=== PATIENT | female | born 1970 | race Caucasian/White ===

== ENCOUNTER 2024-01-20 12:23 | Emergency (ER) | payer SELFPAY ==
[2024-01-20 12:25] VITALS: BP 179/112
--- NOTE | 2024-01-20 13:15 | ED.GENMED ---
History of Present Illness
General
Chief Complaint: Flank Pain
Source: patient
Exam Limitations: none
Time Seen by Provider: 01/20/24 12:59
Nursing documentation reviewed up to this point in time: agreed with
History of Present Illness
History of Present Illness:
53-year-old female with past medical history as documented notable for recurrent kidney stones presents to the emergency department for evaluation of flank pain. Patient reports onset of symptoms about 10 days ago and they have been waxing and
waning in intensity since then. She reports pain is identical to prior kidney stones, was trying to pass it at home says that pain is not going away and she thinks it could be stuck. She reports some hematuria but denies dysuria. She has been
drinking a lot of water and so she has been going more frequently but denies any fevers or chills. She has had some nausea no vomiting. No change in bowels. She denies any other complaints. Last kidney stone she says was about 2 months ago and
she was able to pass it on her own.
Past History
Past History
ED Past Medical History: Other (Kidney stones, medullary sponge kidney, ddd, UTI); Negative Asthma, HTN, Hypercholesterolemia or NIDDM
ED Past Surgical History: Urological
Social History
Tobacco: Non-smoker
Alcohol: None
Drug: None
Personal:
Living: with family
Family History
Family History: Other (Father had kidney stones ); Negative Diabetes, Hypertension, Early CAD, Asthma or Cancer
Review of Systems
Review of Systems
All Other Systems: ROS reviewed and negative except as documented in HPI and ROS
Constitutional: Denies fever or chills
Respiratory: Denies trouble breathing
Cardiac: Denies chest pain
ABD/GI: Reports nausea; Denies abdominal pain, vomiting or diarrhea
: Reports frequency, flank pain and bleeding; Denies dysuria
Musculoskeletal: Denies neck pain or back pain
Neurological: Denies headache
Phy Exam
Physical Exam
Physical Exam:
General: Awake, alert, oriented x3; appears mildly uncomfortable
Head: Normocephalic, atraumatic
Eyes: Conjunctiva normal, sclera anicteric
Throat: Airway intact, handling secretions
Neck: Trachea midline, supple without meningismus
Lungs: Breathing comfortably with no distress, no evidence of accessory muscle use, no cyanosis, normal respiratory rate, normal pulse ox
Heart: Tachycardia with regular rhythm
Abd: Soft, non distended, nontender
Back: No CVA tenderness
Neuro: No gross deficits
Extremities: No edema in extremities, warm well-perfused
Scores
Heart Failure Risk
Heart Failure Risk Score: Not Applicable
Heart Score for Chest Pain Patients
STEMI patient?: Not applicable
Withdrawal Assessment of Alcohol
Withdrawal Assessment Completed?: Not applicable
Course
Orders/Labs/Results
Orders:
Orders
01/20/24 13:02
CT Abd/pel Without Iv Or Oral Urgent
Comment:
Reason For Exam: L flank pain
0.9% Sodium Chloride 1000 ml [Nss] 1,000 ml IV BOLUS
Ketorolac [Toradol] 15 mg IV NOW STA
01/20/24 13:14
Ondansetron Injectable [Zofran] 4 mg IV NOW STA
01/20/24 13:28
Complete Blood Count/With Diff Urgent
Comprehensive Metabolic Panel Urgent
Lipase Urgent
01/20/24 16:41
Urinalysis Reflex To Culture Urgent
Date Specimen was Collected: 01/20/24
Time Specimen was Collected: 16:27
Urine Microscopic Reflex Cult Urgent
Urine Culture Urgent
PATI Source: U
Specimen Description:
Date Specimen was Collected: 01/20/24
Time Specimen was Collected: 16:27
Abnormal Lab Results
01/20/24 01/20/24
13:28 16:41
Lymphocytes % 20.0 L %
(20.5-51.1)
Urine Ketones Trace A
(Negative)
Ur Occult Blood Reflex 3+ A
(Negative)
Leukocyte Esterase Rfl 1+ A
(Negative)
01/20/24 13:28
01/20/24 13:28
Vital Signs
Initial and Last Documented VS:
Initial Vital Signs
Temp Pulse Resp BP Pulse Ox
36.7 C 102 20 179/112 95
01/20/24 12:25 01/20/24 12:25 01/20/24 12:25 01/20/24 12:25 01/20/24 12:25
Last Documented Vital Signs
Temp Pulse Resp BP Pulse Ox
36.7 C 95 20 154/89 99
01/20/24 12:25 01/20/24 15:26 01/20/24 15:26 01/20/24 15:26 01/20/24 15:26
MDM/Problems Addressed
Differential Diagnosis Includes:
Nephrolithiasis, UTI/pyelonephritis, peptic ulcer, pancreatitis, musculoskeletal pain
MDM/Problems Addressed:
53-year-old female presents for evaluation of left flank pain ongoing x 10 days identical to prior kidney stones. Hypertensive and tachycardic likely pain related. Rest of vitals normal. Physical exam as above. Plan to check labs including a CBC
and a CMP, lipase. Check urinalysis. Sent for CT abdomen pelvis. Will provide fluids, pain control, antiemetic. Reassess after the above.
Labs reviewed: CBC and CMP unremarkable. Lipase normal. CT of the abdomen pelvis shows multiple intrarenal calculi but no hydronephrosis, no ureteral calculi or bladder calculus. No other acute pathology in the abdomen pelvis. Awaiting
urinalysis.
Urinalysis positive for blood. Symptoms could be from a recently passed stone given positive blood on UA versus UTI, somewhat lower suspicion that this is musculoskeletal. She could be having symptoms of intermittent obstruction from intrarenal
stones as well. Will plan to cover with antibiotics. No clear indication of the hospital chan at this point, vitals have been stable she is not septic even if this is a UTI. She is tolerating p.o. Will prescribe pain control and Zofran. Patient
to follow-up with urology as an outpatient. She feels very comfortable with this plan. All questions answered.
Chronic conditions affecting care:
Recurrent kidney stone
Acute Exacerbation and/or Progression of Chronic Illness:
Acutely hypertensive likely pain related�no signs or symptoms of hypertensive emergency, will treat pain but no emergent antihypertensives indicated at present
Acute Exacerbation and/or Progression of Chronic Illness: HTN
*Radiology
Radiology exam reviewed: preliminary read by ED provider and radiology read reviewed
*Pulse Oximetry
Patient hypoxic: no
*Critical Care Note
Total Time (30-74mins, 75-104mins- exclusive of procedures): Not Applicable
Data Reviewed
Review of Other/Old Records Reveals: Labs and Records
Source: patient and records
ED Attending Note
-
Portions of this chart may have been created with voice recognition software.� Occasional wrong word or��sound alike� substitutions may have occurred due to the inherent limitations of voice recognition software.
Discharge Plan
Departure
Patient Disposition: Home (Routine Discharge)
Date of Disposition: 01/20/24
Time of Disposition: 17:00
Patient with high blood pressure during this ER visit?: Yes
Discharge Problem:
Left flank pain, Hypertension
Instructions: Flank Pain (DC), BLOOD PRESSURE
Prescriptions:
New
hydromorphone 2 mg tablet
2 mg PO Q6H PRN (Reason: Pain) Qty: 10 0RF
ondansetron 4 mg tablet,disintegrating
4 mg PO TIDPRN PRN (Reason: nausea/vomiting) Qty: 10 0RF
cefdinir 300 mg capsule
300 mg PO BID 7 Days Qty: 14 0RF
No Action
hydromorphone 2 MG tablet
2 mg PO Q4HPRN PRN (Reason: pain) Qty: 15 0RF
ondansetron 4 MG tablet,disintegrating
4 mg PO TIDPRN PRN (Reason: nausea) Qty: 12 0RF
cholecalciferol (vitamin D3) [D3 DOTS] 50 MCG tablet
2,000 unit PO DAILY
mecobalamin (vitamin B12) [B12 Active] 1,000 MCG tablet,chewable
1,000 mcg PO DAILY
tamsulosin 0.4 MG capsule
0.4 mg PO DAILY PRN (Reason: kidney stone)
ondansetron 4 mg Tablet,Disintegrating
4 mg PO TIDPRN PRN (Reason: nausea/vomiting) Qty: 8 0RF
Referrals:
Jason Braxton MD [Active] - Call in 1-3 days for appt
Yahaira Gordon DO [Family Provider] -
Activity Restrictions/Additional Instructions:
Thank you for visiting the Emergency Department at [facility].
1. Please schedule a follow up appointment as directed. Call first thing tomorrow morning to make an appointment.
2. If indicated, please take your medications as instructed and indicated on discharge paperwork.
3. If any of your symptoms do not improve, or persist, or become more severe within 6-12 hours, please return to the emergency department for further care.
4. Please return to the emergency department if you develop a headache, neck pain/stiffness, fever greater than 100.4F, chest pain, shortness of breath, persistent nausea, vomiting, slurred speech, difficulty walking, numbness/tingling, weakness,
signs of infection or any other symptoms that are worrisome to you.
Please call [phone] if you have any questions.
Interventions
Interventions:
*Risk Screen - Suicide Last Done: 01/20/24 12:24
*General Assessment Last Done: 01/20/24 12:25
WZ-[id number]-[id number] Assessment Last Done: 01/20/24 15:26
ED-Female Genitourinary Assessment Last Done: 01/20/24 15:26
Discharge Date and Time
Print Language: LIBERIAN
[2024-01-20 13:20] VITALS: BMI 36.3
[2024-01-20] MEDS: ZOFRAN 4 MG IV (13:31)
[2024-01-20] MEDS: TORADOL 15 MG IV (13:31)
[2024-01-20] MEDS: NSS 1000 IV (13:32)
[2024-01-20 13:36] VITALS: BP 138/84
[2024-01-20 13:56] LABS: % Basophils 0.3 % (0-2); % Eosinophils 0.8 % (0-6); % Immature Granulocytes 0.3 % (0-0.5); % Monocytes 5.3 % (1.7-9.3); % Neutrophils 73.3 % (42.2-75.2); Absolute Eosinophils 0.1 10^3/uL (0-0.7); Absolute Lymphocytes 1.5 10^3/uL (1.2-3.4); Absolute Monocytes 0.4 10^3/uL (0.1-0.6); Absolute Neutrophils 5.3 10^3/uL (1.4-6.5); Hemoglobin 12.7 g/dL (12.0-16.0); Mean Corp Hgb Conc. 34.3 g/dL (33.0-37.0); Mean Corpuscular Hgb 30.1 pg (27.0-31.0); Mean Corpuscular Volume 87.7 fL (81.0-99.0); Mean Platelet Volume 9.7 fL (7.4-10.4); Nucleated Red Blood Cells % 0 %; Platelet Count 266 10^3/uL (130-400); Red Blood Cell Count 4.22 10^6/uL (4.20-5.40); Red Cell Dist. Width 12.4 % (11.5-14.5); White Blood Cell Count 7.3 10^3/uL (4.8-10.8)
[2024-01-20 14:20] LABS: ALT (SGPT) 12 U/L (0-35); AST (SGOT) 16 U/L (14-36); Albumin 4.3 g/dl (3.5-5.0); Alkaline Phosphatase 91 U/L (38-126); Blood Urea Nitrogen 13 mg/dl (7-17); Calcium 9.3 mg/dl (8.4-10.2); Carbon Dioxide 27 mmol/L (22-30); Chloride 101 mmol/L (98-107); Estimated Creatinine Clearance 74 ml/min; Glucose 94 mg/dl (70-99); Lipase 68 U/L (23-300); Potassium 4.2 mmol/L (3.5-5.1); Sodium 138 mmol/L (135-145); Total Bilirubin 0.8 mg/dl (0.2-1.3); Total Protein 6.8 g/dl (6.3-8.2); eGFR > 60.00
[2024-01-20 15:26] VITALS: BP 154/89
[2024-01-20 16:53] LABS: Urine Albumin Negative (Neg - Trace); Urine Bilirubin Negative (Negative); Urine Character Clear (Clear); Urine Color Yellow; Urine Glucose Negative (Negative); Urine Ketone Trace (Negative); Urine Leukocyte 1+ (Negative); Urine Nitrite Negative (Negative); Urine Occult Blood 3+ (Negative); Urine Urobilinogen Negative (Neg - 1+)
[2024-01-20 17:09] LABS: Urine Urothelial Cell 0-2 /LPF (FEW)
[2024-01-20 17:10] LABS: Urine Bacteria Moderate (Negative)
[2024-01-20 17:11] VITALS: BP 172/91
== END 2024-01-20 17:12 | disposition home or self-care (01) ==
LOC: EMR 12:23
PROVIDERS: EMERGENCY PHYSICIAN Emergency Medicine; FAMILY PHYSICIAN Family Medicine
DX: R10.9 Unspecified abdominal pain (principal); I10 Essential (primary) hypertension; Z82.49 Family history of ischemic heart disease and other diseases of the circulatory system; Z87.440 Personal history of urinary (tract) infections; Z87.442 Personal history of urinary calculi
CPT/HCPCS: 99284; 96374; 96375; 96361; 74176; 80053; 81003; 81015; 83690; 85025; 87086

== ENCOUNTER 2024-02-12 00:56 | Emergency (ER) | payer BC, SELFPAY ==
[2024-02-12 00:58] VITALS: BP 173/99
[2024-02-12 01:55] LABS: % Basophils 0.2 % (0-2); % Immature Granulocytes 0.3 % (0-0.5); % Lymphocytes 12.9 % (20.5-51.1); % Monocytes 4.5 % (1.7-9.3); % Neutrophils 82.1 % (42.2-75.2); Absolute Lymphocytes 1.2 10^3/uL (1.2-3.4); Absolute Monocytes 0.4 10^3/uL (0.1-0.6); Absolute Neutrophils 7.4 10^3/uL (1.4-6.5); Hematocrit 39.9 % (37.0-47.0); Hemoglobin 13.8 g/dL (12.0-16.0); Mean Corp Hgb Conc. 34.6 g/dL (33.0-37.0); Mean Corpuscular Hgb 31.3 pg (27.0-31.0); Mean Corpuscular Volume 90.5 fL (81.0-99.0); Mean Platelet Volume 9.8 fL (7.4-10.4); Nucleated Red Blood Cells % 0 %; Platelet Count 270 10^3/uL (130-400); Red Blood Cell Count 4.41 10^6/uL (4.20-5.40); Red Cell Dist. Width 12.3 % (11.5-14.5); White Blood Cell Count 9.1 10^3/uL (4.8-10.8)
[2024-02-12 01:56] LABS: Urine Albumin Negative (Neg - Trace); Urine Bilirubin Negative (Negative); Urine Character Clear (Clear); Urine Color Straw; Urine Glucose Negative (Negative); Urine Ketone Negative (Negative); Urine Leukocyte 2+ (Negative); Urine Nitrite Negative (Negative); Urine Occult Blood Trace (Negative); Urine Urobilinogen Negative (Neg - 1+)
[2024-02-12 02:02] VITALS: BP 152/93; BMI 35.2
[2024-02-12 02:16] LABS: Urine Bacteria Few (Negative); Urine Red Blood Cell 0-2 /HPF (0-2); Urine White Cell 60-70 /HPF (0-5); Urine Yeast Few (Negative)
[2024-02-12 02:19] LABS: Troponin I < 0.012 ng/ml
[2024-02-12 02:21] LABS: ALT (SGPT) 15 U/L (0-35); AST (SGOT) 15 U/L (14-36); Albumin 4.3 g/dl (3.5-5.0); Alkaline Phosphatase 76 U/L (38-126); Blood Urea Nitrogen 15 mg/dl (7-17); Calcium 9.2 mg/dl (8.4-10.2); Carbon Dioxide 28 mmol/L (22-30); Chloride 100 mmol/L (98-107); Estimated Creatinine Clearance 81 ml/min; Glucose 119 mg/dl (70-99); Potassium 4.3 mmol/L (3.5-5.1); Sodium 141 mmol/L (135-145); Total Bilirubin 0.4 mg/dl (0.2-1.3); eGFR > 60.00
--- NOTE | 2024-02-12 02:37 | ED.GENMED ---
History of Present Illness
General
Chief Complaint: Numbness
Source: patient
Exam Limitations: none
Time Seen by Provider: 02/12/24 02:21
Nursing documentation reviewed up to this point in time: agreed with
History of Present Illness
History of Present Illness:
This is a 53-year-old woman who has history of kidney stones who complains of several week history of generalized numbness as well as generalized aches, arthralgias primarily lower back, bilateral arms and mildly to the bilateral legs. She denies
chest pain or shortness of breath but feels some discomfort when she attempts to take a deep breath noting lower chest, upper abdominal tightness when she attempts to take a deep breath.
Evaluated by her PCP last week and initial thought was for musculoskeletal lower back pain and she was placed on a Medrol Dosepak for which she has 2 days left. Thus far no improvement and with no improvement with Medrol was prescribed a muscle
relaxer 2 days ago which she admits makes her tired but has not improved her symptoms. Along with prednisone she has been taking NSAIDs intermittently for her discomfort.
She denies headache or neck pain, no fever no chills, no rash, no swelling. No nausea or vomiting, no diarrhea or constipation. No change in weight.
She has had intermittent left flank pain with prior history of kidney stones, similar left flank pain noted during ED visit January 19. CT showed intrarenal stones but no evidence of ureteric stone nor hydronephrosis. Urinalysis concerning for
possible UTI and she was placed on an antibiotic during that ED visit, urine culture returned negative/no growth.
Currently denies flank pain. She has had no UTI symptoms, no dysuria, no urgency, no hematuria.
Prior records reveal similar complaints of generalized numbness 2021 for which she was evaluated by neurology and underwent unremarkable EMG/nerve conduction study. Unremarkable MRIs/MRAs of the brain. She states that episode of numbness was
different than current symptoms.
She has had no falls, no difficulty with ambulation.
She takes no medicines on a daily basis but has been taking a fair amount of NSAIDs over the past several weeks due to low back pain. Prescribed Dilaudid tablets during ED visit January 19, according to PDMP, this was filled February 06.
Past History
Past History
ED Past Medical History: Other (Kidney stones, medullary sponge kidney, ddd, UTI); Negative Asthma, HTN, Hypercholesterolemia or NIDDM
ED Past Surgical History: Urological
Social History
Tobacco: Non-smoker
Alcohol: None
Drug: None
Personal:
Living: with family
Family History
Family History: Other (Father had kidney stones ); Negative Diabetes, Hypertension, Early CAD, Asthma or Cancer
Phy Exam
Physical Exam
Physical Exam:
GENERAL: 53-year-old woman appears somewhat older than stated age, awake and alert, appears in no acute distress, easily communicative.
EYE: anicteric
NECK: Supple, nontender, no meningismus, no significant adenopathy.
ENT: oral mucosa is moist. No rhinorrhea.
CARDIAC: Regular rate and rhythm. no murmur.
LUNGS: Clear breath sounds bilaterally, no acute respiratory distress, no wheezes/rales/rhonchi
ABDOMEN: Rotund, soft, nondistended, without focal tenderness, no r/g, no cvat. normoactive BS.
NEUROLOGICAL: Alert and oriented x3, no focal neuro deficits. Gait is steady.
SKIN: Warm and dry, normal color, skin intact. No rash.
MUSCULOSKELETAL: No C/C/E. peripheral pulses are full and equal b/l. No palpable tenderness.
PSYCH: Normal and appropriate interaction.
Course
Orders/Labs/Results
Orders:
Orders
02/12/24 01:27
Electrocardiogram (*1) Urgent
Reason for Study: Other
Other Reason for Exam: Possible Stroke
EKG- Treatment ONCE
02/12/24 01:37
C-Reactive Protein Urgent
Comment: ADD ON
Complete Blood Count/With Diff Urgent
Comprehensive Metabolic Panel Urgent
Erythrocyte Sed Rate Urgent
Comment: ADD ON
Lipase Urgent
Comment: ADD ON
Lyme Progressive Urgent
Date Specimen was Collected: 02/12/24
Time Specimen was Collected: :27
Comment: ADD ON
TSH Reflex To Free T4 Urgent
Comment: ADD ON
Troponin I Urgent
Urinalysis Reflex To Culture Urgent
Date Specimen was Collected: 02/12/24
Time Specimen was Collected: :27
Urine Microscopic Reflex Cult Urgent
Urine Culture Urgent
PATI Source: U
Specimen Description:
Date Specimen was Collected: 02/12/24
Time Specimen was Collected: :
02/12/24 02:36
Add On- LAB Urgent
Tests Added?: sed rate, CRP, lyme progressive, TSH w reflex free T-4
02/12/24 04:08
Mag Hydrox/Al Hydrox/Simeth [Maalox] 30 ml Phenobarb/Hyoscy/Atropine/Scop [] 10 ml Viscous Lidocaine 2% [Xylocaine Viscous Cup] 10 ml PO NOW
Pantoprazole [Protonix IV] 40 mg IV NOW STA
02/12/24 05:01
Mag Hydrox/Al Hydrox/Simeth [Maalox] 30 ml .ROUTE .STK-MED ONE
Phenobarb/Hyoscy/Atropine/Scop [] 10 ml .ROUTE .STK-MED ONE
Viscous Lidocaine 2% [Xylocaine Viscous Cup] 15 ml .ROUTE .STK-MED ONE
02/12/24 05:33
Sucralfate Suspension [Carafate Suspension] 1 gm PO NOW STA
CR Chest - 2 Views Urgent
Comment:
Reason For Exam: CP, epigastric fullness
02/12/24 06:27
Acetaminophen 1000MG/100Ml [Ofirmev] 1,000 mg in 100 ml IV ONCE
Acetaminophen IV Indication:: ED Narcotic Naive Pt-ONCE
02/12/24 06:28
Acetaminophen 1000MG/100Ml [Ofirmev] 1,000 mg in 100 ml .ROUTE .STK-MED
02/12/24 06:33
Add On- LAB Urgent
Tests Added?: lipase
Abnormal Lab Results
02/12/24
01:37
MCH 31.3 H pg
(27.0-31.0)
Absolute Neuts (auto) 7.4 H 10^3/uL
(1.4-6.5)
Neutrophils % 82.1 H %
(42.2-75.2)
Lymphocytes % 12.9 L %
(20.5-51.1)
Glucose 119 H mg/dl
(70-99)
Ur Occult Blood Reflex Trace A
(Negative)
Leukocyte Esterase Rfl 2+ A
(Negative)
Urine WBC (Reflex) 60-70 A /HPF
(0-5)
Urine Bacteria (Reflex) Few A
(Negative)
Urine Yeast Few A
(Negative)
02/12/24 01:37
02/12/24 01:37
Vital Signs
Initial and Last Documented VS:
Initial Vital Signs
Temp Pulse Resp BP Pulse Ox
98.4 F 86 18 173/99 99
02/12/24 00:58 02/12/24 00:58 02/12/24 00:58 02/12/24 00:58 02/12/24 00:58
Last Documented Vital Signs
Temp Pulse Resp BP Pulse Ox
97.9 F 90 16 133/96 100
02/12/24 07:15 02/12/24 07:15 02/12/24 07:15 02/12/24 07:15 02/12/24 07:15
MDM/Problems Addressed
Differential Diagnosis Includes:
Patient presents with several nonspecific complaints, generalized numbness, generalized myalgias, arthralgias without associated weakness, no headache, no fever.
Exam is overall unremarkable, no focal neurodeficits.
Concern for potential ACS but thus far EEG is unremarkable, within normal limits and troponin is negative. With ongoing symptoms over the past week or 2, ACS is unlikely.
Labs thus far unremarkable with normal CBC, unremarkable chemistries.
Will add inflammatory markers as well as TSH and Lyme titer.
Urinalysis shows 60-70 WBCs, few bacteria, few yeast, 0-2 RBCs. Considered for UTI however patient denies UTI symptoms and similar urinalysis results revealed contaminated/mixed veronique on urine cultures. Patient currently denies abdominal pain, no
flank pain. At this point no indication for imaging.
*Radiology
Radiology exam reviewed: preliminary read by ED provider (Chest x-ray is unremarkable. Clear lung ingram. Normal heart size.)
*Pulse Oximetry
Patient hypoxic: no
*EKG
Interpreted by ED Provider?: Yes
Interpretation: normal
Comparison EKG: no comparison EKG present
Rate: normal
Rhythm: sinus
[place]: normal axis
Interval: normal interval
QRS Pattern: normal QRS
Ischemia: no ischemia
*Production Expert Interpretation
Rate: normal
Interpretation: normal
Rhythm: sinus
*Critical Care Note
Total Time (30-74mins, 75-104mins- exclusive of procedures): Not Applicable
Update Note
Update Note:
02/12/2024 0409 AM
Inflammatory markers as well as TSH all within normal limits.
Patient continues with some primarily epigastric discomfort, fullness that is worse with deep breath and I suspect she may have an element of gastritis which may be aggravated by current course of prednisone. Will trial a GI cocktail and Protonix.
At this point unclear as to cause for numbness/paresthesias of extremities and as above she reported similar generalized paresthesias in 2021 with unremarkable neurologic evaluation.
02/12/2024 0628 AM
Patient has had no relief of upper abdominal discomfort despite GI cocktail, Carafate, Protonix.
Chest x-ray is unremarkable.
Abdomen remains soft without appreciable tenderness.
Labs are all unremarkable including negative inflammatory markers. Normal TSH. Lyme titer is pending.
We discussed obtaining a CT abdomen pelvis however patient just had overall unremarkable CT abdomen pelvis 3 weeks ago. With reassuring labs and no appreciable abdominal tenderness on exam, at this point, I suspect a repeat CT will be unrevealing.
I have offered her an IV dose of Tylenol but ultimately recommend she follow-up with her PCP for continued evaluation.
She does admit to significant NSAID use as well as currently taking a tapering dose of prednisone and I highly suspect an element of gastritis and encouraged her to initiate a daily PPI such as [id number] omeprazole for GI protection.
ED Attending Note
-
Portions of this chart may have been created with voice recognition software.� Occasional wrong word or��sound alike� substitutions may have occurred due to the inherent limitations of voice recognition software.
Discharge Plan
Departure
Patient Disposition: Home (Routine Discharge)
Date of Disposition: 02/12/24
Time of Disposition: 07:03
Patient with high blood pressure during this ER visit?: No
Condition: Good
Discharge Problem:
generalized upper abdominal pain, generalized paresthesias
Instructions: Paresthesia (DC), Abdominal pain in adults - Discharge instructions
Prescriptions:
No Action
hydromorphone 2 MG tablet
2 mg PO Q4HPRN PRN (Reason: pain) Qty: 15 0RF
ondansetron 4 MG tablet,disintegrating
4 mg PO TIDPRN PRN (Reason: nausea) Qty: 12 0RF
cholecalciferol (vitamin D3) [D3 DOTS] 50 MCG tablet
2,000 unit PO DAILY
mecobalamin (vitamin B12) [B12 Active] 1,000 MCG tablet,chewable
1,000 mcg PO DAILY
tamsulosin 0.4 MG capsule
0.4 mg PO DAILY PRN (Reason: kidney stone)
ondansetron 4 mg Tablet,Disintegrating
4 mg PO TIDPRN PRN (Reason: nausea/vomiting) Qty: 8 0RF
hydromorphone 2 mg tablet
2 mg PO Q6H PRN (Reason: Pain) Qty: 10 0RF
ondansetron 4 mg tablet,disintegrating
4 mg PO TIDPRN PRN (Reason: nausea/vomiting) Qty: 10 0RF
cefdinir 300 mg capsule
300 mg PO BID 7 Days Qty: 14 0RF
Referrals:
Yahaira Gordon, DO [Family Provider] - Call in 1-3 days for appt
Interventions
Interventions:
*Risk Screen - Suicide Last Done: 02/12/24 00:58
*General Assessment Last Done: 02/12/24 00:58
*Neglect/Abuse Screening Last Done: 02/12/24 00:58
ED- Fall Risk Assessment Last Done: 02/12/24 02:06
*ED COVID-19 Vaccine History Last Done: 02/12/24 02:06
ED- Neurological Assessment Last Done: 02/12/24 02:06
Discharge Date and Time
Print Language: HAITIAN
[2024-02-12 03:14] LABS: Erythrocyte Sed Rate 11 mm/hour (0-20)
[2024-02-12 03:23] LABS: C-Reactive Protein < 5.00 mg/L (0.0-10.00)
[2024-02-12 03:51] LABS: TSH Reflex To Free T4 3.27 uIU/ml (0.47-4.68)
[2024-02-12 04:00] VITALS: BP 132/92
[2024-02-12 05:00] VITALS: BP 123/85
[2024-02-12] MEDS: MAALOX 50 PO (05:03)
[2024-02-12] MEDS: PROTONIX IV 40 MG IV (05:04)
[2024-02-12] MEDS: CARAFATE SUSPENSION 1 GM PO (05:39)
[2024-02-12] MEDS: OFIRMEV 100 IV (06:28)
[2024-02-12 07:02] LABS: Lipase 67 U/L (23-300)
[2024-02-12 07:15] VITALS: BP 133/96
[2024-02-13 15:14] LABS: Lyme Antibody Screen, EIA Negative (Negative)
== END 2024-02-12 07:57 | disposition home or self-care (01) ==
LOC: EMR 00:56
PROVIDERS: EMERGENCY PHYSICIAN Emergency Medicine; FAMILY PHYSICIAN Family Medicine
DX: R10.10 Upper abdominal pain, unspecified (principal); R20.2 Paresthesia of skin; Z87.442 Personal history of urinary calculi
CPT/HCPCS: 99285; 96374; 96375; 71046; 80053; 81003; 81015; 83690; 84443; 84484; 85025; 85652; 86140; 86618; 87086; 93005

== ENCOUNTER → 2024-03-15 12:36 | Outpatient (REF) | payer BC, SELFPAY | LOC: RCS 12:36 | PROVIDERS: ATTENDING PHYSICIAN Internal Medicine Cardiovascular Disease; FAMILY PHYSICIAN Family Medicine | DX: H34.231 Retinal artery branch occlusion, right eye (principal) | CPT/HCPCS: 93306 ==

== ENCOUNTER → 2024-03-20 14:35 | Outpatient (REF) | payer BC, SELFPAY | LOC: RAD 14:35 | PROVIDERS: ATTENDING PHYSICIAN Internal Medicine Cardiovascular Disease; FAMILY PHYSICIAN Family Medicine | DX: H34.231 Retinal artery branch occlusion, right eye (principal) | CPT/HCPCS: 93880 ==

== ENCOUNTER → 2024-03-30 10:50 | Outpatient (REF) | payer BC, SELFPAY | LOC: MRI 3T 10:50 | PROVIDERS: ATTENDING PHYSICIAN Psychiatry & Neurology Neurology; FAMILY PHYSICIAN Family Medicine | DX: R23.8 Other skin changes (principal) | CPT/HCPCS: 72156; A9575 ==

== ENCOUNTER 2024-04-05 17:30 | Inpatient (IN) | payer BC, SELFPAY ==
[2024-04-05 16:06] VITALS: BP 175/106
--- NOTE | 2024-04-05 16:30 | ED.GENMED ---
History of Present Illness
General
Chief Complaint: Numbness
Source: patient
Time Seen by Provider: 04/05/24 16:14
History of Present Illness
History of Present Illness:
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 Patient has been having ongoing issues with balance and paresthesias for the past several months. She has been following with
Dr. Alex and undergoing numerous testing. She had an MRI of her cervical spine on 03/30/24. MRI revealed 'Multiple T2/STIR hyperintense signal lesions in the cervical spinal cord. Mild postcontrast enhancement of the lesion at the C4-C5 level.
Imaging findings would be most suggestive for demyelination, with active demyelination at C4-C5.' Neurology concerned for an MS variant. She was called and advised to go to the ED for admission.
Past History
Past History
ED Past Medical History: Other (Kidney stones, medullary sponge kidney, ddd, UTI); Negative Asthma, HTN, Hypercholesterolemia or NIDDM
ED Past Surgical History: Urological
Social History
Tobacco: Non-smoker
Alcohol: None
Drug: None
Personal:
Living: with family
Family History
Family History: Other (Father had kidney stones ); Negative Diabetes, Hypertension, Early CAD, Asthma or Cancer
Phy Exam
General Physical Exam
General Presentation: well appearing and no apparent distress
General age: appears stated age
General Skin: warm and dry
General Habitus: normal
General Mental: alert
General Hydration: appears well hydrated
ENT Exam
ENT Exam: normocephalic
Eye Exam
Eye Exam: PERRL and EOMI
Pulmonary Exam
Pulmonary Exam: no respiratory distress
Neurological Exam
Neurological Exam: alert, CN II-XII intact and other (Dysmetria noted with R finger to nose)
[place] Coma Scale
Eye Opening: Spontaneous
Verbal Response: Oriented
Motor Response: Obeys Commands
GCS Total Score: 15
Skin Exam
Skin Exam: normal color and warm/dry
Psychiatric Exam
Psychiatric Exam: normal mood/affect
Course
Orders/Labs/Results
Orders:
Orders
04/05/24 16:33
MethylPREDNISolone. [Solu-Medrol] 1,000 mg 0.9% Sodium Chloride 250 ml [Nss] 250 ml IV NOW
04/05/24 16:42
Complete Blood Count/With Diff Urgent
Comprehensive Metabolic Panel Urgent
Abnormal Lab Results
04/05/24
16:42
RBC 4.02 L 10^6/uL
(4.20-5.40)
Hct 36.9 L %
(37.0-47.0)
MCH 31.1 H pg
(27.0-31.0)
04/05/24 16:42
04/05/24 16:42
Vital Signs
Initial and Last Documented VS:
Initial Vital Signs
Temp Pulse Resp BP Pulse Ox
98.6 F 103 16 175/106 98
04/05/24 16:06 04/05/24 16:06 04/05/24 16:06 04/05/24 16:06 04/05/24 16:06
Last Documented Vital Signs
Temp Pulse Resp BP Pulse Ox
98.6 F 103 16 175/106 98
04/05/24 16:06 04/05/24 16:06 04/05/24 16:06 04/05/24 16:06 04/05/24 16:06
MDM/Problems Addressed
Differential Diagnosis Includes:
53yoF here after an abnormal MRI cervical spine last week showed evidence of demyelination. Has been having various neurologic symptoms x several months including balance issues and paresthesias. Sent in by neurology for admission and IV steroids.
She is hypertensive with otherwise normal vitals. She is well appearing in no distress. There is dysmetria with R finger to nose on exam. Differential diagnosis includes but is not limited to: multiple sclerosis, other demyelinating condition
Initial ED plan: Basic labs and 1g IV methylprednisolone ordered. Will admit for further evaluation and management. Plan discussed with patient and .
*Critical Care Note
Total Time (30-74mins, 75-104mins- exclusive of procedures): Not Applicable
ED Attending Note
-
Portions of this chart may have been created with voice recognition software.� Occasional wrong word or��sound alike� substitutions may have occurred due to the inherent limitations of voice recognition software.
Discharge Plan
Departure
Patient Disposition: Admit
Date of Disposition: 04/05/24
Time of Disposition: 16:35
Presentation/result/management discussed w/ accepting MD/DO: Hospitalist
Discharge Problem:
Abnormal MRI, cervical spine, Paresthesia, Balance problem
Prescriptions:
No Action
atorvastatin [Lipitor] 40 mg Tablet
40 mg PO QPM
cyanocobalamin (vitamin B-12) 1,000 mcg Tablet
1,000 mcg PO DAILY
aspirin 81 mg Tablet,Delayed Release (Dr/Ec)
81 mg PO QPM
ibuprofen [Advil] 200 mg Tablet
400 mg PO Q6HPRN PRN (Reason: back pains)
cholecalciferol (vitamin D3) [Vitamin D3] 50 mcg (2,000 unit) Tablet
50 mcg PO DAILY
Referrals:
Yahaira Gordon DO [Family Provider] -
Interventions
Interventions:
*Risk Screen - Suicide Last Done: 04/05/24 16:06
*Neglect/Abuse Screening Last Done: 04/05/24 16:06
Discharge Date and Time
Print Language: IVORIAN
[2024-04-05 16:38] VITALS: BP 146/104
[2024-04-05 16:49] LABS: % Basophils 0.3 % (0-2); % Immature Granulocytes 0.2 % (0-0.5); % Lymphocytes 20.7 % (20.5-51.1); % Monocytes 6.6 % (1.7-9.3); % Neutrophils 70.2 % (42.2-75.2); Absolute Eosinophils 0.1 10^3/uL (0-0.7); Absolute Lymphocytes 1.2 10^3/uL (1.2-3.4); Absolute Monocytes 0.4 10^3/uL (0.1-0.6); Absolute Neutrophils 4.1 10^3/uL (1.4-6.5); Hematocrit 36.9 % (37.0-47.0); Hemoglobin 12.5 g/dL (12.0-16.0); Mean Corp Hgb Conc. 33.9 g/dL (33.0-37.0); Mean Corpuscular Hgb 31.1 pg (27.0-31.0); Mean Corpuscular Volume 91.8 fL (81.0-99.0); Mean Platelet Volume 9.8 fL (7.4-10.4); Nucleated Red Blood Cells % 0 %; Platelet Count 235 10^3/uL (130-400); Red Blood Cell Count 4.02 10^6/uL (4.20-5.40); Red Cell Dist. Width 12.8 % (11.5-14.5); White Blood Cell Count 5.9 10^3/uL (4.8-10.8)
[2024-04-05 17:00] VITALS: BP 155/112
[2024-04-05 17:06] LABS: ALT (SGPT) 21 U/L (0-35); AST (SGOT) 20 U/L (14-36); Albumin 4.5 g/dl (3.5-5.0); Alkaline Phosphatase 114 U/L (38-126); Blood Urea Nitrogen 16 mg/dl (7-17); Calcium 9.1 mg/dl (8.4-10.2); Carbon Dioxide 29 mmol/L (22-30); Chloride 103 mmol/L (98-107); Glucose 76 mg/dl (70-99); Potassium 3.9 mmol/L (3.5-5.1); Sodium 144 mmol/L (135-145); Total Bilirubin 0.7 mg/dl (0.2-1.3); Total Protein 7.1 g/dl (6.3-8.2); eGFR > 60.00
[2024-04-05] MEDS: SOLU-MEDROL 258 MG IV (17:15)
--- NOTE | 2024-04-05 17:57 | HPS.HSE ---
Family Physician
<Alfred Sommers MD, Resident - Last Filed: 04/05/24 18:05>
-
Family Physician: Yahaira Gordon
Chief Complaint
<Alfred Sommers MD, Resident - Last Filed: 04/05/24 18:05>
-
Numbness and tingling in bilateral upper extremity and lower extremity, difficulty with balance
History of Present Illness
53-year-old female with DDD, nephrolithiasis/medullary sponge kidney, H/O ocular CVA presenting to the ED today after being alerted of an abnormal outpatient MRI finding. Has been having issues with balance and paresthesias over months time.
Following outpatient with Dr. Alex. MRI was performed on 03/30/2024 with results showing multiple T2/STIR hyperintense signal lesions in the cervical spinal cord and mild postcontrast enhancement of lesion at C4-C5 level concerning for
demyelinating process. Neurology with concern of MS variant. Was told to come to ED for further treatment. Upon arrival was hypertensive though otherwise stable and on room air. CBC unremarkable, BMP pending.
Of note she added that she gets Eyelea injection in her right eye once monthly.
Medical History
<Alfred Sommers MD, Resident - Last Filed: 04/05/24 18:05>
Past Medical History
Past Medical History: Reports Hypercholesterolemia and Other (Kidney stone, medullary sponge kidney, DDD, history of UTI)
Past Surgical History: Reports Urological
Social History
Tobacco: Non-smoker
Alcohol: None
Drug: None
Personal:
Living: With Family
Family History
Family History: Not pertinent
Allergies / Home Medications
Allergies reflects when Allergies were last updated in [facility].
Home Medications with original date entered in [facility]
Allergy/Medication List:
Allergies
Allergy/AdvReac Type Severity Reaction Status Date / Time
ciprofloxacin [From Cipro] Allergy Itching Verified 04/05/24 16:11
ciprofloxacin HCl Allergy Itching Verified 04/05/24 16:11
[From Cipro]
Home Medications
aspirin 81 mg tablet,delayed release 81 mg PO QPM 04/05/24
atorvastatin 40 mg tablet (Lipitor) 40 mg PO QPM 04/05/24
cholecalciferol (vitamin D3) 50 mcg (2,000 unit) tablet (Vitamin D3) 50 mcg PO DAILY 04/05/24
cyanocobalamin (vitamin B-12) 1,000 mcg tablet 1,000 mcg PO DAILY 04/05/24
ibuprofen 200 mg tablet (Advil) 400 mg PO Q6HPRN PRN back pains 04/05/24
Review of Systems
<Alfred Sommers MD, Resident - Last Filed: 04/05/24 18:05>
-
History Source: Patient
Constitutional: Reports No Symptoms
EENT: Reports No Symptoms
Respiratory: Reports No Symptoms
Cardiac: Reports No Symptoms
Abdomen/GI: Reports No Symptoms
Musculoskeletal: Reports No Symptoms
Neurological: Reports Weakness and Numbness
Endocrine: Reports No Symptoms
Hematologic/Lymphatic: Reports No Symptoms
Psych: Reports No Symptoms
Physical Exam
<Alfred Sommers MD, Resident - Last Filed: 04/05/24 18:05>
Vital Signs
Vital Signs
Temp Pulse Resp BP Pulse Ox
98.6 F 103 21 155/112 95
04/05/24 16:06 04/05/24 17:30 04/05/24 17:30 04/05/24 17:00 04/05/24 17:30
Physical Exam
General: Well Developed, Well Nourished and No Apparent Distress
HEENT: NormoCephalic and Anicteric
Respiratory: Clear
Cardiac: S1/S2 and Regular Rhythm
GI: Soft and Non Tender
Skin: Warm and Dry
Neuro: Awake, Alert, Oriented, No Motor Deficits, Cranial Nerves Intact and No Sensory Deficits
Psych: Calm
Laboratory Results
<Alfred Sommers MD, Resident - Last Filed: 04/05/24 18:05>
-
04/05/24 16:42
04/05/24 16:42
Laboratory Results
Total Bilirubin 0.7 mg/dl (0.2-1.3) 04/05/24 16:42
AST 20 U/L (14-36) 04/05/24 16:42
ALT 21 U/L (0-35) 04/05/24 16:42
Alkaline Phosphatase 114 U/L (38-126) 04/05/24 16:42
Data Reviewed
<Alfred Sommers MD, Resident - Last Filed: 04/05/24 18:05>
-
MRI: Report Reviewed by me, Discussed with Physician and Discussed with Patient
Lab Data: Labs Reviewed by me, Discussed with Physician and Discussed with Patient
Impression/Plan
<Alfred Sommers MD, Resident - Last Filed: 04/05/24 18:05>
-
53-year-old female with DDD, nephrolithiasis/medullary sponge kidney, H/O ocular CVA presenting to the ED today after being alerted of an abnormal outpatient MRI finding.
#Concern for multiple sclerosis or variant.
Will start IV Solu-Medrol 1 g for 5-day course empirically.
Order MRI brain/T-spine/L-spine with and without contrast.
Would consider LP for assessment of oligoclonal bands. Will defer to neurology.
Check vitamin D levels. PT/OT eval.
Neurochecks.
Neuro consulted
Suspect significant hyperglycemia on high-dose steroid regimen. Will start ISS with Accu-Cheks for now, glucose goal 100-200
Currently hypertensive without any previous history of hypertension.
Does have chronic pain, uses NSAIDs which may be contributing.
Will start hydralazine as needed for SBP >170 mmHg.
Continue to monitor, consider starting standing regimen if needed.
Full code code
DVT prophylaxis: Lovenox
#
<Kannan Mejia, DO - Last Filed: 04/05/24 18:06>
-
53-year-old female with DDD, nephrolithiasis/medullary sponge kidney, H/O ocular CVA presenting to the ED today after being alerted of an abnormal outpatient MRI finding.
#Concern for multiple sclerosis or variant.
Will start IV Solu-Medrol 1 g for 5-day course empirically.
Order MRI brain/T-spine/L-spine with and without contrast.
Would consider LP for assessment of oligoclonal bands. Will defer to neurology.
Check vitamin D levels. PT/OT eval.
Neurochecks.
Neuro consulted
Suspect significant hyperglycemia on high-dose steroid regimen. Will start ISS with Accu-Cheks for now, glucose goal 100-200
Currently hypertensive without any previous history of hypertension.
Does have chronic pain, uses NSAIDs which may be contributing.
Will start hydralazine as needed for SBP >170 mmHg.
Continue to monitor, consider starting standing regimen if needed.
Full code code
DVT prophylaxis: Lovenox
Dispo: Med/Surg
[2024-04-05 18:37] VITALS: BP 165/96
[2024-04-05 18:38] VITALS: BMI 35.1
[2024-04-05] MEDS: LOVENOX 40 MG SC (19:41)
[2024-04-05] MEDS: LIPITOR 40 MG PO (19:41)
[2024-04-05] MEDS: ASPIR LOW (ENTERIC COATED) 81 MG PO (19:41)
[2024-04-05 21:11] LABS: Glucose - Point of Care 150 mg/dl (70-99)
[2024-04-05 22:51] VITALS: BP 157/86
[2024-04-06] MEDS: MOTRIN 400 MG PO ×2 (03:29→21:24)
[2024-04-06] MEDS: XANAX 0.25 MG PO ×2 (04:34→16:33)
[2024-04-06 06:52] LABS: Hematocrit 38.1 % (37.0-47.0); Hemoglobin 12.9 g/dL (12.0-16.0); Mean Corp Hgb Conc. 33.9 g/dL (33.0-37.0); Mean Corpuscular Hgb 30.1 pg (27.0-31.0); Platelet Count 255 10^3/uL (130-400); Red Blood Cell Count 4.28 10^6/uL (4.20-5.40); Red Cell Dist. Width 12.6 % (11.5-14.5); White Blood Cell Count 8.5 10^3/uL (4.8-10.8)
[2024-04-06 07:00] VITALS: BP 130/90
[2024-04-06 07:15] LABS: ALT (SGPT) 20 U/L (0-35); AST (SGOT) 17 U/L (14-36); Albumin 4.3 g/dl (3.5-5.0); Alkaline Phosphatase 137 U/L (38-126); Blood Urea Nitrogen 12 mg/dl (7-17); Calcium 8.9 mg/dl (8.4-10.2); Carbon Dioxide 23 mmol/L (22-30); Chloride 105 mmol/L (98-107); Estimated Creatinine Clearance 91 ml/min; Glucose 154 mg/dl (70-99); Magnesium 1.9 mg/dl (1.6-2.3); Potassium 4.1 mmol/L (3.5-5.1); Sodium 140 mmol/L (135-145); Total Bilirubin 0.9 mg/dl (0.2-1.3); Total Protein 7.1 g/dl (6.3-8.2); eGFR > 60.00
[2024-04-06 07:31] LABS: Vitamin D, 25-OH*** 34.7 ng/mL (30-80)
[2024-04-06 08:04] LABS: Vitamin B12 657 pg/ml (239-931)
[2024-04-06] MEDS: VITAMIN B-12 1000 MCG PO (08:17)
[2024-04-06] MEDS: VITAMIN D3 (cholecalciferol) 50 MCG PO (08:18)
--- NOTE | 2024-04-06 08:24 | CON.NEURO ---
Neuro Assessment/Plan
Assessment
Acute onset abdominal then passed bandlike sensation leading to MRI of cervical spine suggesting transverse myelitis with inflammation at C5-6.
Differential diagnosis includes based on the patient's history of right eye inflammation, multiple sclerosis, neuromyelitis optica spectrum disorder, myelin oligodendrocyte glycoprotein associated disease, neuropsychiatric lupus, carcinomatous
etiology, infectious possibilities
Plan
Based on Ferguson criteria, if MRI of brain fails to demonstrate enhancing or nonenhancing lesions, would recommend lumbar puncture to determine if oligoclonal bands are present
Check MRI of brain, thoracic spine, and lumbar spine with and without contrast
Continue newly initiated methylprednisolone 1 g IV probably for 5 doses
Check blood work for potential metabolic causes
Eventual outpatient neuro ophthalmologic evaluation
Will continue to follow
Consultation
Order
Date of Consultation: 04/06/24
Requesting Provider: Hospitalists
Reason for Consult: Transverse myelitis
Subjective/Objective
Subjective Data
Date of Service: April 06, 2024
Adapted from prior outpatient notes:
'Since last visit:
>> 03/2024
>>
Prolonged time since last visit
11/2023 right eye branch retinal artery occlusion started on bevacizumab injections into the eye last in January
Stopped B12 in 11/2023 because labs 'were in range'
2 weeks ago with numbness in lower back and into legs and feet
4 days later spread to trunk and upper arms and hands
Presented to ED who
PCP started patient placed on Prednisone and Flexeril then for past week
Bsw and coordination are off, gait worsening
Now also unable
Frequency of leg discomfort: Increasing in frequency over time --> decreased
Medications previously: OTC meds, iron
SE with medication: iron unchanged with taking with food (causing stomach pains)
Frequency: Nightly for leg discomfort
Prior treatment: iron infusion
Intensity: variable --> reduced --> unchanged
Previous testing: Blood work
MRI of lumbar spine
Previous evaluation: My esteemed colleague
Etiology: Restless Legs Syndrome; presumed due to low ferritin levels, low B12
Improving factors: iron, Tensing legs improves symptoms
Worsening symptoms: none known
Unchanged by: unclear to patient
Severity: significant
Bed time: 22:00-24:00 --> 22:00
Time to sleep onset: variable --> 30 minutes
Awakenings from sleep: 4 during which patient moves body (needs to move legs) --> 2x, duration before returning to sleep 30 minutes
Wake time: 04:30-08:00 --> 05:00
Napping: weekly for 1 hour which is refreshing --> stopped
Snoring present and has awoken self with snoring (if sleep on back)
Left marital bed due to restlessness x 2 years
~~~~
Pattern:
Began:
May 2021
Legs developed creepy-crawling feeling, primarily if prone for sleeping
>> 07/2021
unable to get iron infusion due to insurance
started iron by mouth
Insomnia present
05/2022
Completed MRI of lumbar spine
Stopped iron due to constipation.
New/Follow-up Patient Consult:
From my esteemed colleagues note:
50 year old female referred by her PCP for evaluation for numbness and pulsatile tinnitus. she states that she has had numbness in her right more so than left arm and hand for the past 2 years. It affects all 5 fingers. She denies any associated
pain or tingling. The numbness extends to the level of the elbow. She says that it 'feels strange to touch certain fabrics' and she notes difficulty with dexterity in both hands as well as some weakness in her bilateral upper extremities,
particularly while holding trays of food. She denies any repetitive motion at the wrist.
She also complains of pulsatile tinnitus that occurs in a daily basis over the past 1 year and is predominant on the right side. She says that she tried to have imaging done for this but experienced extreme claustrophobia but would be willing to try
repeat imaging if she could have TriLyte sedation.
She is also concerned about possible restless leg syndrome. She 'feels like and some bugs are under her skin and feels a compulsion to move in her feet.' This sensation feels better if she is able to 'keep her legs tense.' She also feels relief if
she lays on her stomach. The sensation extends from her feet into her upper thighs bilaterally. She has never had an EMG.
09/24/21: Since her last appointment, she is started having left foot drop and feels that her balance is very off. She also saw Dr. Alex for restless leg syndrome. She is found to have a low B12 level at 282 and started taking supplementation for
this. Her SPEP was normal. Her hemoglobin A1c was normal at 5.4 these labs were drawn and June. She will have an EMG done on October 26. She had an MRA of the neck on July 24, 2021 which was normal. MRA of the [place] showed no evidence
of any vascular malformation to account for her pulsatile tinnitus. MRI of the brain with and without contrast done on July 23, 2021 showed minimal white matter changes in both frontal lobes. The right PICA slightly extended into the right internal
auditory canal. She also had an iron infusion done and notes that she feels more rested in the morning. She will be following up with Dr. Alex.
Skin Sensation Change:
Since last visit:
03/2024
Skin sensation loss across chest at T2-5 level, moved 1 week ago, moved upwards from abdominal band; sense of compression.'
Patient presented to this hospital's emergency department upon the request of this interviewer due to new finding of transverse myelitis by means of MRI of cervical spine. MRI of cervical spine was performed, as suggested above, because of a skin
sensation change across the T2-5 level which had moved up from a abdominal band sensation.
The patient currently reports that she is experiencing continued right eye visual change which has been treated by routine injections for eye inflammation, despite a prior diagnosis of branch retinal artery occlusion. Patient is not aware of any
factors which are improving or worsening her visual change. She experiencing any neck symptomatology. She reports that her history of restless leg syndrome is well-controlled.
Objective Data
Vital Signs
Temp Pulse Resp BP Pulse Ox
36.7 C 98 18 157/86 96
04/05/24 22:51 04/05/24 22:51 04/05/24 22:51 04/05/24 22:51 04/05/24 22:51
Lab Results
04/06/24 06:20
04/06/24 06:20
Sodium 140 mmol/L (135-145) 04/06/24 06:20
Potassium 4.1 mmol/L (3.5-5.1) 04/06/24 06:20
BUN 12 mg/dl (7-17) 04/06/24 06:20
Glucose 154 mg/dl (70-99) H 04/06/24 06:20
Calcium 8.9 mg/dl (8.4-10.2) 04/06/24 06:20
Vitamin B12 657 pg/ml (239-931) 04/06/24 06:20
Patient Allergies
ciprofloxacin [From Cipro] Allergy (Verified 04/05/24 16:11)
Itching
ciprofloxacin HCl [From Cipro] Allergy (Verified 04/05/24 16:11)
Itching
Review of Systems
-
History Source: Patient
All other systems: Reviewed and negative
EENT: Decreased Vision (in right eye); Negative Swallowing Difficulty
Respiratory: Negative Trouble Breathing
Cardiac: Negative Chest Pain
Abdomen/GI: Negative Incontinence of Stool
Genitourinary: Negative Incontinence
Musculoskeletal: Back Pain; Negative Neck Pain
Neuro: Speech Problem; Negative Dizzy or Headache
Physical Exam
-
General: No Apparent Distress and Appears Stated Age
Eyes: Round OU, [place] Conjunctivae and No Ptosis
HEENT: Anicteric and Moist Mucous Membranes
Neck: Full Range of Motion
Respiratory: No Dyspnea
Cardiac: No JVD
GI: Non-distended
Skin: Unremarkable
Extremities: No Clubbing, No Cyanosis and No Edema
Psych: Intact Judgement/Insight
Extended Neurological Exam
Mood & Affect: Mood Unremarkable and Affect Unremarkable
Attention Span & Concentration: Awake, Alert, Interactive and No Difficulty with 2 Step Request
Memory: Unremarkable
Tremor: Hand Tremor Absent and Head Tremor Absent
Speech: Quality Unremarkable and Quantity Unremarkable
Cranial Nerve II: Left Eye: Pupillary Reactivity Unremarkable, Pupillary Size Unremarkable and Visual [place] Intact
Cranial Nerve II: Right Eye: Pupillary Reactivity Unremarkable, Pupillary Size Unremarkable and Visual [place] Intact
Cranial Nerves III, IV, : Extraocular Movement: Extraocular Movement Full in all Directions
Cranial Nerve VII: Facial Symmetry: Normal Facial Symmetry
Cranial Nerve VIII: Hearing: Unremarkable Hearing to Normal Conversational Volume
Cranial Nerves IX, X: Palate Movement: Palate Elevation Symmetric
Cranial Nerve XI: Shoulder Shrug: Unremarkable
Cranial Nerve XII: Tongue Protusion: Midline
Muscle Strength, Overall: Full Throughout
Muscle Bulk & Tone: Bulk Unremarkable and Tone Unremarkable
Pronator Drift: No Drift in Upper Extremities
Deep Tendon Reflexes: Unremarkable Throughout
Touch Sensation: Unremarkable
Coordination: [id number] Testing Unremarkable
Babinski Sign: Absent Bilaterally
Data Reviewed
-
MRI Head: Ordered
MRI Cervical Spine: Report Reviewed and Image Reviewed
MRI Thoracic Spine: Ordered
MRI Lumbar Spine: Ordered
Labs: Ordered and Report Reviewed
Reviewed with: Physician and Patient
Old Records: Summarized
Medications
-
Active Medications
Generic Name Dose Route Start Last Admin
Trade Name Freq PRN Reason Stop Dose Admin
Alprazolam 0.25 mg 04/06/24 03:45 04/06/24 04:34
Alprazolam 0.25 Mg Tablet PO 05/04/24 03:44 0.25 mg
DAILY PRN Administration
anxiety
Aspirin 81 mg 04/05/24 18:25 04/05/24 19:41
Aspirin 81 Mg (Enteric Coated) Tablet PO 05/03/24 18:24 81 mg
QPM DANIELLE Administration
Atorvastatin Calcium 40 mg 04/05/24 18:25 04/05/24 19:41
Atorvastatin (Lipitor) 40 Mg Tablet PO 05/03/24 18:24 40 mg
QPM DANIELLE Administration
Bisacodyl 10 mg 04/05/24 17:23
Bisacodyl 10 Mg Rectal Suppository RECTAL 05/03/24 17:22
[id number] PRN
constipation
Cholecalciferol 50 mcg 04/06/24 08:00 04/06/24 08:18
Cholecalciferol (Vitamin D3) 50 Mcg Tablet (2,000 Units) PO 05/04/24 07:59 50 mcg
DAILY DANIELLE Administration
Cyanocobalamin 1,000 mcg 04/06/24 08:00 04/06/24 08:17
Cyanocobalamin 1,000 Mcg Tablet PO 05/04/24 07:59 1,000 mcg
DAILY DANIELLE Administration
Dextrose 12.5 grams 04/05/24 20:00
Dextrose 50% (0.5 Grams/Ml) 50 Ml Syringe IV 05/03/24 19:59
[id number] PRN
hypoglycemia
Protocol
Enoxaparin Sodium 40 mg 04/05/24 18:25 04/05/24 19:41
Enoxaparin Sodium 40 Mg/0.4 Ml Syringe SC 05/03/24 18:24 40 mg
QPM DANIELLE Administration
Glucagon 1 mg 04/05/24 20:00
Glucagon 1 Mg Vial IM 05/03/24 19:59
PRN PRN
hypoglycemia - no IV access
Protocol
Methylprednisolone Sodium 258 mls @ 258 mls/hr 04/06/24 12:00
Succinate 1,000 mg/ Sodium IV 04/09/24 11:59
Chloride Q24H DANIELLE
Ibuprofen 400 mg 04/05/24 18:25 04/06/24 03:29
Ibuprofen 200 Mg Tablet PO 05/03/24 18:24 400 mg
Q6HPRN PRN Administration
back pains
Insulin Aspart 0 units 04/06/24 07:30
Insulin Aspart Low Resistance 300 Units/3 Ml Pen.Injctr SC 05/04/24 07:29
AC DANIELLE
Protocol
Polyethylene Glycol 17 grams 04/05/24 17:23
Polyethylene Glycol Powder 17 Grams Packet PO 05/03/24 17:22
DAILYPRN PRN
constipation
Senna/Docusate Sodium 1 tablet 04/05/24 17:23
Docusate W/Senna (Chelsey-Colace) Tablet PO 05/03/24 17:22
BIDPRN PRN
constipation
Sodium Chloride 0 flush 04/05/24 19:00
Sodium Chloride 0.9% (Flush) Syringe IV 05/03/24 18:59
PER PROTOCOL DANIELLE
Home Medications
�Medication �Instructions �Recorded
alprazolam 0.25 mg tablet (Xanax) 0.25 mg PO DAILY PRN anxiety 04/05/24
aspirin 81 mg tablet,delayed 81 mg PO QPM Blood Clot 04/05/24
release Prevention/Tx
atorvastatin 40 mg tablet (Lipitor) 40 mg PO QPM High Cholesterol 04/05/24
cholecalciferol (vitamin D3) 50 50 mcg PO DAILY Supplement 04/05/24
mcg (2,000 unit) tablet (Vitamin
D3)
cyanocobalamin (vitamin B-12) 1,000 mcg PO DAILY Supplement 04/05/24
1,000 mcg tablet
ibuprofen 200 mg tablet (Advil) 400 mg PO Q6HPRN PRN back pains 04/05/24
Past History
Past History
ED Past Medical History: Other (Kidney stones, medullary sponge kidney, ddd, UTI, right branch retinal artery occlusion 11/2023, RLS) and Other (vitamin B12 defic., vitamin D defic., ferritin defic.); Negative Asthma, HTN, Hypercholesterolemia or
NIDDM
ED Past Surgical History: Urological (urology stent)
Social History
Tobacco: Non-smoker
Alcohol: None
Drug: None
Personal:
Living: with family
Family History
Family History: Other (Father had kidney stones ); Negative Diabetes, Hypertension, Early CAD, Asthma or Cancer
[2024-04-06 08:32] LABS: Ferritin 56.2 ng/ml (11.1-264.0)
[2024-04-06 08:33] LABS: Erythrocyte Sed Rate 17 mm/hour (0-20)
[2024-04-06 08:59] LABS: Glucose - Point of Care 142 mg/dl (70-99)
[2024-04-06] MEDS: NOVOLOG FLEXPEN-LOW RESISTANCE SC (09:13)
[2024-04-06] MEDS: TYLENOL 1000 MG PO (09:33)
[2024-04-06] MEDS: ATIVAN 1 MG PO (10:47)
[2024-04-06 10:49] LABS: Lyme Antibody Screen, EIA Negative (Negative)
[2024-04-06 11:37] LABS: HDL Cholesterol 72 mg/dl; LDL Cholesterol, Calculated 66 mg/dl; Total Cholesterol 150 mg/dl (50-199); Triglyceride 64 mg/dl (10-149); Very Low Density Lipoprotein 12 mg/dl (0-30)
[2024-04-06 13:12] LABS: Glucose - Point of Care 169 mg/dl (70-99)
[2024-04-06] MEDS: SOLU-MEDROL 258 MG IV (13:29)
[2024-04-06] MEDS: NOVOLOG FLEXPEN-LOW RESISTANCE 1 UNITS SC ×2 (13:33→18:39)
--- NOTE | 2024-04-06 13:40 | W.PN.HOSP.TC ---
Today's Communication/Plan
-
day 2/5 iv solu medrol
Assessment / Plan
Assessment / Plan
53-year-old female with DDD, nephrolithiasis/medullary sponge kidney, H/O ocular CVA presenting to the ED today after being alerted of an abnormal outpatient MRI finding.
Acute onset abdominal then passed bandlike sensation leading to MRI of cervical spine suggesting transverse myelitis with inflammation at C5-6.
#Concern for multiple sclerosis or variant.
-IV Solu-Medrol 1 g day 2/5 course empirically.
-MRI brain/T-spine/L-spine with and without contrast
per neuro: if MRI of brain fails to demonstrate enhancing or nonenhancing lesions, would recommend lumbar puncture to determine if oligoclonal bands are present.
-Vit d, b12, ESR WNL
- serum copper, viktor pending
- lyme negative
- appreciate neuro input
Suspect significant hyperglycemia on high-dose steroid regimen. started ISS with Accu-Cheks for now, glucose goal 100-200
on admission hypertensive without any previous history of hypertension.
Does have chronic pain, uses NSAIDs which may be contributing.
started hydralazine as needed for SBP >170 mmHg.
Continue to monitor, consider starting standing regimen if needed.
Full code code
DVT prophylaxis: Lovenox
Anticipated Discharge: 24 - 48 hours
Subjective/Interval History
-
Date of Service: April 06, 2024
anxious to get MRI- neuro order ativan for one time use; pre mri
Objective Data
-
Labs:
Laboratory Results
04/06/24
06:20
WBC 8.5
Hgb 12.9
Hct 38.1
Plt Count 255
Sodium 140
Potassium 4.1
Chloride 105
Carbon Dioxide 23
BUN 12
Creatinine 0.8
Glucose 154 H
Calcium 8.9
Total Bilirubin 0.9
AST 17
ALT 20
Alkaline Phosphatase 137 H
Vital Signs:
Vital Signs
Temp Pulse Resp BP Pulse Ox
97.7 F 109 19 130/90 94
04/06/24 07:00 04/06/24 07:00 04/06/24 07:00 04/06/24 07:00 04/06/24 07:00
I&O
04/05/24 04/06/24 04/07/24
06:59 06:59 06:59
Intake Total 120 / 120
Balance 120 / 120
Review of Systems
-
History Source: Patient
EENT: Reports Decreased Vision (Right eye)
Neuro: Reports Weakness and Numbness
Physical Exam
-
General: Well Developed, Well Nourished and No Apparent Distress
Respiratory: Clear to Auscultation
Cardiac: Regular Rhythm
GI: Soft, Nontender and Nondistended
Skin: Warm and Dry
Neuro: Awake, Alert, Oriented, No Motor Deficits, Nonfocal/Grossly Intact and Central Nerve's Intact
Psych: Calm
Data Reviewed
-
MRI: Report Reviewed by me, Discussed with Physician and Discussed with Patient
Labs: Labs Reviewed by me, Discussed with Physician and Discussed with Patient
[2024-04-06 14:04] VITALS: BP 164/96; O2SAT 94
[2024-04-06 15:00] VITALS: BP 135/80
--- NOTE | 2024-04-06 15:21 | CM ---
Pt seen bedside. Initial assessment completed.
Pt lives w/ spouse and 2 adult children in [place] to enter
Pt is independent, denies use of device to ambulate. No DME identified
Denies SNF/VN/PT
Per pt, participated in OP rehab for her lower back at [facility] in the past
Denies financial insecurities
Address, point of contact and insurance verified
PCP: Dr. Yahaira Gordon
Pharmacy: [facility]
Per PT/OT, currently recommending OP therapy. If pt is agreeable, will need script at d/c.
Plan: Home w/ OP rehab if pt agreeable
[2024-04-06 17:10] VITALS: BP 158/93; BP_SYST 109
[2024-04-06 17:59] VITALS: BP 129/94
[2024-04-06 18:31] LABS: Glucose - Point of Care 166 mg/dl (70-99)
[2024-04-06] MEDS: LOVENOX 40 MG SC (18:39)
[2024-04-06] MEDS: LIPITOR PO (18:43)
[2024-04-06] MEDS: ASPIR LOW (ENTERIC COATED) PO (18:44)
[2024-04-06 19:37] LABS: Spinal Fluid Glucose 102 mg/dl (40-70); Spinal Fluid Protein 50 mg/dl (12-60)
[2024-04-06 19:38] LABS: CSF Clarity Clear; CSF Color Colorless; CSF Tube # 1; Red Cell Count/CSF 38 mm^3; White Cell Count/CSF 0 mm^3 (0-5)
[2024-04-06 19:39] LABS: CSF Color Colorless; CSF Tube # 4; CSF Tube # Clarity Clear; Red Cell Count/CSF 7 mm^3; White Blood Cell Count/CSF 0 mm^3 (0-5)
[2024-04-06 21:19] LABS: Glucose - Point of Care 216 mg/dl (70-99)
[2024-04-06 23:00] VITALS: BP 129/79
[2024-04-07 07:25] VITALS: BP 133/81
[2024-04-07 07:26] LABS: Glucose - Point of Care 139 mg/dl (70-99)
[2024-04-07] MEDS: NOVOLOG FLEXPEN-LOW RESISTANCE SC (07:31)
[2024-04-07] MEDS: TYLENOL 1000 MG PO (08:16)
[2024-04-07] MEDS: VITAMIN B-12 1000 MCG PO (08:17)
[2024-04-07] MEDS: XANAX 0.25 MG PO (08:17)
[2024-04-07] MEDS: VITAMIN D3 (cholecalciferol) 50 MCG PO (08:17)
[2024-04-07 08:25] LABS: Hematocrit 38.5 % (37.0-47.0); Hemoglobin 13.2 g/dL (12.0-16.0); Mean Corp Hgb Conc. 34.3 g/dL (33.0-37.0); Mean Corpuscular Hgb 31.3 pg (27.0-31.0); Mean Corpuscular Volume 91.2 fL (81.0-99.0); Mean Platelet Volume 10.4 fL (7.4-10.4); Platelet Count 278 10^3/uL (130-400); Red Blood Cell Count 4.22 10^6/uL (4.20-5.40); Red Cell Dist. Width 13.1 % (11.5-14.5)
[2024-04-07 08:35] LABS: INR 1.05
[2024-04-07 09:12] LABS: Blood Urea Nitrogen 21 mg/dl (7-17); Calcium 9.3 mg/dl (8.4-10.2); Carbon Dioxide 23 mmol/L (22-30); Chloride 107 mmol/L (98-107); Estimated Creatinine Clearance 73 ml/min; Glucose 141 mg/dl (70-99); Potassium 3.9 mmol/L (3.5-5.1); Sodium 144 mmol/L (135-145); eGFR > 60.00
--- NOTE | 2024-04-07 10:24 | W.PN.NEURO.1 ---
Today's Communication / Plan
-
Based on Ferguson criteria, if MRI of brain fails to demonstrate enhancing or nonenhancing lesions, would recommend lumbar puncture to determine if oligoclonal bands are present
Await results from blood work
Continue newly initiated methylprednisolone 1 g IV probably for 5 doses started on 04/05/2024
Switch from Atorvastatin to Ezetimibe for cholesterol control, due to leg cramping
Neuro Assessment/Plan
Assessment
Acute onset abdominal then passed bandlike sensation leading to MRI of cervical spine suggesting transverse myelitis with inflammation at C5-6.
Differential diagnosis includes based on the patient's history of right eye inflammation, multiple sclerosis, neuromyelitis optica spectrum disorder, myelin oligodendrocyte glycoprotein associated disease, neuropsychiatric lupus, carcinomatous
etiology, infectious possibilities
MRI of brain, thoracic spine, and lumbar spine with and without contrast: Spinal cord: '1.2 cm in length T2/STIR hyperintense lesion at the C5 level. Smaller patchy T2/STIR hyperintense lesions at the C2, C6 and C7-T1 levels. Ill-defined patchy
T2/STIR hyperintensity throughout the lower thoracic spine from T8 the through T11 levels'
Brain MRI demonstrated few periventricular lesions, non-enhancing
Completed LP which is unrevealing for significant findings with oligoclonal bands pending
Plan
Based on Ferguson criteria, if MRI of brain fails to demonstrate enhancing or nonenhancing lesions, would recommend lumbar puncture to determine if oligoclonal bands are present
Await results from blood work
Continue newly initiated methylprednisolone 1 g IV probably for 5 doses started on 04/05/2024
Switch from Atorvastatin to Ezetimibe for cholesterol control, due to leg cramping
As needed medication for headache
Eventual outpatient neuro-ophthalmologic and subspecialist in field of MS evaluation
Will continue to follow.
Time in room with patient 40 minutes.
Subjective/Objective
Subjective Data
Date of Service: April 07, 2024
Foot numbness improved.
Vision in right eye unchanged.
Difficulty with fine motor skills.
Objective Data
Vital Signs
Temp Pulse Resp BP Pulse Ox
36.4 C 97 18 133/81 94
04/07/24 07:25 04/07/24 07:25 04/07/24 07:25 04/07/24 07:25 04/07/24 07:25
Lab Results
04/07/24 08:06
04/07/24 08:06
PT 14.0 Sec (11.4-14.6) 04/07/24 08:06
INR 1.05 04/07/24 08:06
Sodium 144 mmol/L (135-145) 04/07/24 08:06
Potassium 3.9 mmol/L (3.5-5.1) 04/07/24 08:06
BUN 21 mg/dl (7-17) H 04/07/24 08:06
Glucose 141 mg/dl (70-99) H 04/07/24 08:06
Calcium 9.3 mg/dl (8.4-10.2) 04/07/24 08:06
LDL Cholesterol, Calc 66 mg/dl 04/06/24 10:41
Vitamin B12 657 pg/ml (239-931) 04/06/24 06:20
Patient Allergies
ciprofloxacin [From Cipro] Allergy (Verified 04/05/24 16:11)
Itching
ciprofloxacin HCl [From Cipro] Allergy (Verified 04/05/24 16:11)
Itching
Review of Systems
-
History Source: Patient
All other systems: Reviewed and negative
EENT: Decreased Vision (in right eye); Negative Swallowing Difficulty
Respiratory: Negative Trouble Breathing
Cardiac: Negative Chest Pain
Abdomen/GI: Negative Incontinence of Stool
Genitourinary: Negative Incontinence
Musculoskeletal: Back Pain; Negative Neck Pain
Neuro: Negative Dizzy, Headache or Speech Problem
Physical Exam
-
General: No Apparent Distress and Appears Stated Age
Eyes: Round OU, [place] Conjunctivae and No Ptosis
HEENT: Anicteric and Moist Mucous Membranes
Neck: Full Range of Motion
Respiratory: No Dyspnea
Cardiac: No JVD
GI: Non-distended
Skin: Unremarkable
Extremities: No Clubbing, No Cyanosis and No Edema
Psych: Intact Judgement/Insight
Extended Neurological Exam
Mood & Affect: Mood Unremarkable and Affect Unremarkable
Attention Span & Concentration: Awake, Alert and Interactive
Memory: Unremarkable
Tremor: Hand Tremor Absent and Head Tremor Absent
Speech: Quality Unremarkable and Quantity Unremarkable
Cranial Nerve II: Left Eye: Pupillary Size Unremarkable and Visual [place] Grossly Intact
Cranial Nerve II: Right Eye: Pupillary Size Unremarkable and Visual [place] Grossly Intact
Cranial Nerves III, IV, : Extraocular Movement: Grossly Intact
Cranial Nerve VII: Facial Symmetry: Normal Facial Symmetry
Cranial Nerve VIII: Hearing: Unremarkable Hearing to Normal Conversational Volume
Muscle Strength, Overall: Spontaneously Moves
Muscle Bulk & Tone: Bulk Unremarkable and Tone Unremarkable
Pronator Drift: No Drift in Upper Extremities
Coordination: Reaches for Objects without Difficulty
Data Reviewed
-
MRI Head: Report Reviewed and Image Reviewed
MRI Cervical Spine: Report Reviewed
MRI Thoracic Spine: Report Reviewed and Image Reviewed
MRI Lumbar Spine: Report Reviewed
Labs: Pending and Report Reviewed
Reviewed with: Nurse and Patient
Old Records: Summarized
Past History
Past History
ED Past Medical History: Other (Kidney stones, medullary sponge kidney, ddd, UTI, right branch retinal artery occlusion 11/2023, RLS) and Other (vitamin B12 defic., vitamin D defic., ferritin defic.); Negative Asthma, HTN, Hypercholesterolemia or
NIDDM
ED Past Surgical History: Urological (urology stent)
Social History
Tobacco: Non-smoker
Alcohol: None
Drug: None
Personal:
Living: with family
Family History
Family History: Other (Father had kidney stones ); Negative Diabetes, Hypertension, Early CAD, Asthma or Cancer
--- NOTE | 2024-04-07 10:43 | W.PN.HOSP.TC ---
Today's Communication/Plan
-
1 g IV Solu-Medrol day 3/5
Follow-up oligoclonal bands
Follow-up serological studies
Assessment / Plan
Assessment / Plan
#Suspected multiple sclerosis
#Paresthesias and weakness to extremities
#H/O monocular visual disturbance
-Has been following with outpatient neurology, symptomatic with paresthesias from months to years
-Had an outpatient MRI of the C-spine with evidence of demyelination, was told to come to the ED
-MRI of L-spine also showed evidence of demyelinating lesions as well; unable to temporally relate findings
-LP was performed on 04/06/2024, fluid studies including oligoclonal bands are pending
-Additional serologic workup is pending though do not expect positivity; Lyme testing negative
-Remains on IV Solu-Medrol 1 g daily, day 3/
Plan
-Continue with IV Solu-Medrol 1 g daily for 5-day course
-Continue neurochecks and monitor clinical progression on steroid
-Continue with ISS and Accu-Cheks for coverage of hyperglycemia from steroid
-Follow-up oligoclonal bands from LP on 04/06
-Follow-up serological studies for completeness
DVT prophylaxis: Lovenox
Diet: Regular
CODE STATUS: Full code
Anticipated Discharge: > 48 hours
Subjective/Interval History
-
Date of Service: April 07, 2024
Seen and examined at the bedside. No acute events reported overnight. AFVSS this morning.
She states that she does feel slightly better today, less intense paresthesias/numbness to the lower extremities though still present in both lower and upper extremities. LP fluid studies pending
She denies any acute complaints today
Objective Data
-
Labs:
Laboratory Results
04/07/24
08:06
WBC 16.0 H
Hgb 13.2
Hct 38.5
Plt Count 278
PT 14.0
INR 1.05
Sodium 144
Potassium 3.9
Chloride 107
Carbon Dioxide 23
BUN 21 H
Creatinine 1.0
Glucose 141 H
Calcium 9.3
Vital Signs:
Vital Signs
Temp Pulse Resp BP Pulse Ox
97.6 F 97 18 133/81 94
04/07/24 07:25 04/07/24 07:25 04/07/24 07:25 04/07/24 07:25 04/07/24 07:25
I&O
04/06/24 04/07/24 04/08/24
06:59 06:59 06:59
Intake Total 120 / 120 720 / 720 240 / 240
Balance 120 / 120 720 / 720 240 / 240
Review of Systems
-
History Source: Patient
All other systems: Reviewed and negative
Physical Exam
-
General: No Apparent Distress, Comfortable and Obese
HEENT: Normocephalic, Atraumatic, Moist Mucous Membranes, Anicteric and PERRLA
Respiratory: Clear to Auscultation and Non Labored Respirations
Cardiac: Regular Rhythm and S1/S2; Negative Murmur, Rub or Gallop
GI: Soft, Nontender, Nondistended and Normal Bowel Sounds
Musculoskeletal: No Clubbing, No Cyanosis and No Edema
Skin: Warm, Dry and Normal Turgor; Negative Rash
Neuro: AO x 3 and Other (4+/5 MMS to the distal extremities; reduced sensation to the distal extremities; EOMI, PERRL)
Psych: Calm
Data Reviewed
-
MRI: Report Reviewed by me and Discussed with Patient
Labs: Labs Reviewed by me and Discussed with Patient
[2024-04-07] MEDS: SOLU-MEDROL 258 MG IV (11:45)
[2024-04-07 11:52] LABS: Glucose - Point of Care 175 mg/dl (70-99)
[2024-04-07] MEDS: NOVOLOG FLEXPEN-LOW RESISTANCE 1 UNITS SC (14:09)
[2024-04-07 16:08] VITALS: BP 147/84
[2024-04-07 16:47] LABS: Glucose - Point of Care 260 mg/dl (70-99)
[2024-04-07] MEDS: NOVOLOG FLEXPEN-LOW RESISTANCE 3 UNITS SC (17:32)
[2024-04-07] MEDS: LOVENOX 40 MG SC (17:33)
[2024-04-07] MEDS: ASPIR LOW (ENTERIC COATED) 81 MG PO (17:33)
[2024-04-07] MEDS: ZETIA 10 MG PO (21:02)
[2024-04-07 21:26] LABS: Glucose - Point of Care 235 mg/dl (70-99)
[2024-04-07 23:00] VITALS: BP 143/92
[2024-04-08 01:52] LABS: ANA, IgG Reflex to HEp-2 Detected (None Detected)
[2024-04-08 06:59] LABS: Copper, Serum 125.9 ug/dL (80.0-155.0)
[2024-04-08] MEDS: XANAX 0.25 MG PO (07:38)
[2024-04-08] MEDS: TYLENOL 1000 MG PO (07:38)
[2024-04-08] MEDS: VITAMIN B-12 1000 MCG PO (07:39)
[2024-04-08 07:45] VITALS: BP 114/74
[2024-04-08 07:57] LABS: Glucose - Point of Care 127 mg/dl (70-99)
[2024-04-08] MEDS: NOVOLOG FLEXPEN-LOW RESISTANCE SC ×2 (07:58→15:53)
--- NOTE | 2024-04-08 08:29 | W.PN.NEURO.1 ---
Today's Communication / Plan
-
Await oligoclonal bands
Await results from blood work
Continue newly initiated methylprednisolone 1 g IV probably for 5 doses started on 04/05/2024
Switched from Atorvastatin to Ezetimibe for cholesterol control, due to leg cramping
Neuro Assessment/Plan
Assessment
Acute onset abdominal then passed bandlike sensation leading to MRI of cervical spine suggesting transverse myelitis with inflammation at C5-6.
Differential diagnosis includes (based on the patient's history of right eye inflammation) multiple sclerosis, neuromyelitis optica spectrum disorder, myelin oligodendrocyte glycoprotein associated disease, neuropsychiatric lupus, carcinomatous
etiology, infectious possibilities
MRI of brain, thoracic spine, and lumbar spine with and without contrast: Spinal cord: '1.2 cm in length T2/STIR hyperintense lesion at the C5 level. Smaller patchy T2/STIR hyperintense lesions at the C2, C6 and C7-T1 levels. Ill-defined patchy
T2/STIR hyperintensity throughout the lower thoracic spine from T8 the through T11 levels'
Brain MRI demonstrated few periventricular lesions, non-enhancing
Completed LP which is unrevealing for significant findings with oligoclonal bands pending
Plan
Await oligoclonal bands
Await results from blood work
Continue newly initiated methylprednisolone 1 g IV probably for 5 doses started on 04/05/2024
Switched from Atorvastatin to Ezetimibe for cholesterol control, due to leg cramping
As needed medication for headache
Eventual outpatient neuro-ophthalmologic and subspecialist in field of MS evaluation
Will continue to follow.
Subjective/Objective
Subjective Data
Date of Service: April 08, 2024
No issues with infusion.
Muscle discomfort improved.
Improved right eye vision.
Objective Data
Vital Signs
Temp Pulse Resp BP Pulse Ox
36.6 C 94 19 114/74 95
04/08/24 07:45 04/08/24 07:45 04/08/24 07:45 04/08/24 07:45 04/08/24 07:45
Lab Results
04/07/24 08:06
04/07/24 08:06
PT 14.0 Sec (11.4-14.6) 04/07/24 08:06
INR 1.05 04/07/24 08:06
Sodium 144 mmol/L (135-145) 04/07/24 08:06
Potassium 3.9 mmol/L (3.5-5.1) 04/07/24 08:06
BUN 21 mg/dl (7-17) H 04/07/24 08:06
Glucose 141 mg/dl (70-99) H 04/07/24 08:06
Calcium 9.3 mg/dl (8.4-10.2) 04/07/24 08:06
LDL Cholesterol, Calc 66 mg/dl 04/06/24 10:41
Vitamin B12 657 pg/ml (239-931) 04/06/24 06:20
Patient Allergies
ciprofloxacin [From Cipro] Allergy (Verified 04/05/24 16:11)
Itching
ciprofloxacin HCl [From Cipro] Allergy (Verified 04/05/24 16:11)
Itching
Review of Systems
-
History Source: Patient
All other systems: Reviewed and negative
EENT: Blurry Vision
Respiratory: Negative Trouble Breathing
Cardiac: Negative Chest Pain
Abdomen/GI: Negative Incontinence of Stool
Genitourinary: Negative Incontinence
Musculoskeletal: Negative Back Pain or Neck Pain
Neuro: Headache; Negative Dizzy or Speech Problem
Physical Exam
-
General: No Apparent Distress and Appears Stated Age
Eyes: Round OU, [place] Conjunctivae and No Ptosis
HEENT: Anicteric and Moist Mucous Membranes
Neck: Full Range of Motion
Respiratory: No Dyspnea
Cardiac: No JVD
GI: Non-distended
Extremities: No Clubbing, No Cyanosis and No Edema
Psych: Intact Judgement/Insight
Extended Neurological Exam
Mood & Affect: Mood Unremarkable and Affect Unremarkable
Attention Span & Concentration: Awake, Alert and Interactive
Memory: Unremarkable
Tremor: Hand Tremor Absent and Head Tremor Absent
Speech: Quality Unremarkable and Quantity Unremarkable
Cranial Nerve II: Left Eye: Pupillary Size Unremarkable and Visual [place] Grossly Intact
Cranial Nerve II: Right Eye: Pupillary Size Unremarkable and Visual [place] Grossly Intact
Cranial Nerves III, IV, : Extraocular Movement: Grossly Intact
Cranial Nerve VII: Facial Symmetry: Normal Facial Symmetry
Cranial Nerve VIII: Hearing: Unremarkable Hearing to Normal Conversational Volume
Muscle Strength, Overall: Spontaneously Moves (All extremities)
Muscle Bulk & Tone: Bulk Unremarkable and Tone Unremarkable
Coordination: Reaches for Objects without Difficulty
Data Reviewed
-
Labs: Report Reviewed
Reviewed with: Patient
Past History
Past History
ED Past Medical History: Other (Kidney stones, medullary sponge kidney, ddd, UTI, right branch retinal artery occlusion 11/2023, RLS) and Other (vitamin B12 defic., vitamin D defic., ferritin defic.)
ED Past Surgical History: Urological (urology stent)
Social History
Tobacco: Non-smoker
Alcohol: None
Drug: None
Personal:
Living: with family
Family History
Family History: Other (Father had kidney stones ); Negative Diabetes, Hypertension, Early CAD, Asthma or Cancer
Medications
-
Medications:
Generic Name Dose Route Start Last Admin
Trade Name Freq PRN Reason Stop Dose Admin
Acetaminophen 1,000 mg 04/06/24 10:00 04/08/24 07:38
Acetaminophen 500 Mg Tablet PO 05/04/24 09:59 1,000 mg
DAILY DANIELLE Administration
Alprazolam 0.25 mg 04/06/24 03:45 04/06/24 04:34
Alprazolam 0.25 Mg Tablet PO 05/04/24 03:44 0.25 mg
DAILY PRN Administration
anxiety
Alprazolam 0.25 mg 04/06/24 17:00 04/08/24 07:38
Alprazolam 0.25 Mg Tablet PO 05/04/24 16:59 0.25 mg
DAILY DANIELLE Administration
Aspirin 81 mg 04/05/24 18:25 04/07/24 17:33
Aspirin 81 Mg (Enteric Coated) Tablet PO 05/03/24 18:24 81 mg
QPM DANIELLE Administration
Bisacodyl 10 mg 04/05/24 17:23
Bisacodyl 10 Mg Rectal Suppository RECTAL 05/03/24 17:22
[id number] PRN
constipation
Cholecalciferol 50 mcg 04/06/24 08:00 04/07/24 08:17
Cholecalciferol (Vitamin D3) 50 Mcg Tablet (2,000 Units) PO 05/04/24 07:59 50 mcg
DAILY DANIELLE Administration
Cyanocobalamin 1,000 mcg 04/06/24 08:00 04/08/24 07:39
Cyanocobalamin 1,000 Mcg Tablet PO 05/04/24 07:59 1,000 mcg
DAILY DANIELLE Administration
Dextrose 12.5 grams 04/05/24 20:00
Dextrose 50% (0.5 Grams/Ml) 50 Ml Syringe IV 05/03/24 19:59
[id number] PRN
hypoglycemia
Protocol
Ezetimibe 10 mg 04/07/24 22:00 04/07/24 21:02
Ezetimibe (Zetia) 10 Mg Tablet PO 05/05/24 21:59 10 mg
HS DANIELLE Administration
Enoxaparin Sodium 40 mg 04/05/24 18:25 04/07/24 17:33
Enoxaparin Sodium 40 Mg/0.4 Ml Syringe SC 05/03/24 18:24 40 mg
QPM DANIELLE Administration
Glucagon 1 mg 04/05/24 20:00
Glucagon 1 Mg Vial IM 05/03/24 19:59
PRN PRN
hypoglycemia - no IV access
Protocol
Methylprednisolone Sodium 258 mls @ 258 mls/hr 04/08/24 08:00
Succinate 1,000 mg/ Sodium IV 04/09/24 08:59
Chloride Q24H DANIELLE
Ibuprofen 400 mg 04/05/24 18:25 04/06/24 21:24
Ibuprofen 200 Mg Tablet PO 05/03/24 18:24 400 mg
[id number] PRN Administration
back pains
Insulin Aspart 0 units 04/06/24 07:30 04/08/24 07:58
Insulin Aspart Low Resistance 300 Units/3 Ml Pen.Injctr SC 05/04/24 07:29 Not Given
AC DANIELLE
Protocol
Polyethylene Glycol 17 grams 04/05/24 17:23
Polyethylene Glycol Powder 17 Grams Packet PO 05/03/24 17:22
DAILYPRN PRN
constipation
Senna/Docusate Sodium 1 tablet 04/05/24 17:23
Docusate W/Senna (Chelsey-Colace) Tablet PO 05/03/24 17:22
BIDPRN PRN
constipation
Sodium Chloride 0 flush 04/05/24 19:00
Sodium Chloride 0.9% (Flush) Syringe IV 05/03/24 18:59
PER PROTOCOL DANIELLE
[2024-04-08] MEDS: VITAMIN D3 (cholecalciferol) 50 MCG PO (09:33)
[2024-04-08] MEDS: SOLU-MEDROL 258 MG IV (10:23)
[2024-04-08 11:13] LABS: Glucose - Point of Care 225 mg/dl (70-99)
[2024-04-08] MEDS: NOVOLOG FLEXPEN-LOW RESISTANCE 2 UNITS SC (11:46)
--- NOTE | 2024-04-08 12:06 | W.PN.HOSP.TC ---
Today's Communication/Plan
-
IV Solu-Medrol 1 g day 4/5
Follow-up oligoclonal bands on LP
Neurochecks
Assessment / Plan
Assessment / Plan
#Suspected multiple sclerosis
#Paresthesias and weakness to extremities
#H/O monocular visual disturbance
-Has been following with outpatient neurology, symptomatic with paresthesias from months to years
-Had an outpatient MRI of the C-spine with evidence of demyelination, was told to come to the ED
-MRI of L-spine also showed evidence of demyelinating lesions as well; unable to temporally relate findings
-LP was performed on 04/06/2024, fluid studies including oligoclonal bands are pending
-Additional serologic workup is pending though do not expect positivity; Lyme testing negative
-Remains on IV Solu-Medrol 1 g daily, day 4/5
Plan
-Continue with IV Solu-Medrol 1 g daily for 5-day course
-Continue neurochecks and monitor clinical progression on steroid
-Continue with ISS and Accu-Cheks for coverage of hyperglycemia from steroid
-Follow-up oligoclonal bands from LP on 04/06
-Plan for outpatient neuro-ophthalmology at discharge
#Positive OVIDIO screening
-Serological studies from admission did show a positive OVIDIO
-Spoke with patient and discussed how this is nonspecific, often positive in hospitalized patients
-Suspect the predominant process is demyelination from multiple sclerosis as listed above
-Advised patient that she very likely does not have lupus or other connective tissue diseases
DVT prophylaxis: Lovenox
Diet: Regular
CODE STATUS: Full code
Anticipated Discharge: 24 - 48 hours
Subjective/Interval History
-
Date of Service: April 08, 2024
Seen and examined the bedside. No acute events reported overnight. AFVSS this morning
She states she continues to feel improvement, minimal symptoms in her lower extremities but still has some paresthesia to the upper extremities bilaterally in the hands
Denies acute complaints including chest pain, dyspnea, fevers or chills, nausea or vomiting, bleeding or bruising, urinary issues
Objective Data
-
Vital Signs:
Vital Signs
Temp Pulse Resp BP Pulse Ox
97.9 F 94 19 114/74 95
04/08/24 07:45 04/08/24 07:45 04/08/24 07:45 04/08/24 07:45 04/08/24 07:45
I&O
04/07/24 04/08/24 04/09/24
06:59 06:59 06:59
Intake Total 720 / 720 1003 / 1003 550 / 550
Output Total 800 / 800
Balance 720 / 720 1003 / 1003 -250 / -250
Review of Systems
-
History Source: Patient
All other systems: Reviewed and negative
Physical Exam
-
General: Well Developed, Well Nourished, No Apparent Distress and Comfortable
HEENT: Normocephalic, Atraumatic, Moist Mucous Membranes and Anicteric
Respiratory: Clear to Auscultation and Non Labored Respirations
Cardiac: Regular Rhythm and S1/S2; Negative Murmur, Rub or Gallop
GI: Soft, Nontender, Nondistended and Normal Bowel Sounds
Musculoskeletal: No Clubbing, No Cyanosis and No Edema
Skin: Warm and Dry; Negative Rash
Neuro: AO x 3; Negative No Motor Deficits (4+ MMS to upper extremities bilaterally, 5/5 lower extremities) or No Sensory Deficits (Reduced sensation in the hands)
Psych: Calm
Data Reviewed
-
Labs: Labs Reviewed by me, Discussed with Nurse and Discussed with Patient
[2024-04-08 15:33] VITALS: BP 144/89
[2024-04-08 15:43] LABS: Glucose - Point of Care 122 mg/dl (70-99)
[2024-04-08] MEDS: ASPIR LOW (ENTERIC COATED) 81 MG PO (18:27)
[2024-04-08] MEDS: LOVENOX SC ×2 (18:28→21:15)
[2024-04-08] MEDS: ZETIA 10 MG PO (21:15)
[2024-04-08 21:16] LABS: Glucose - Point of Care 214 mg/dl (70-99)
[2024-04-08 23:16] VITALS: BP 133/96
[2024-04-09] MEDS: XANAX 0.25 MG PO ×2 (00:46→08:19)
[2024-04-09 01:23] LABS: CSF VDRL (T. pallidum) Non Reactive (Non Reactive)
[2024-04-09 07:37] VITALS: BP 142/80
--- NOTE | 2024-04-09 07:43 | W.PN.NEURO.1 ---
Today's Communication / Plan
-
Await oligoclonal bands
Await results from blood work
Continue newly initiated methylprednisolone 1 g IV probably for 5 doses started on 04/05/2024
Patient suggesting she would be initiating ocrelizumab as an outpatient
Neuro Assessment/Plan
Assessment
Acute onset abdominal then passed bandlike sensation leading to MRI of cervical spine suggesting transverse myelitis with inflammation at C5-6.
Differential diagnosis includes (based on the patient's history of right eye inflammation) multiple sclerosis, neuromyelitis optica spectrum disorder, myelin oligodendrocyte glycoprotein associated disease, neuropsychiatric lupus, carcinomatous
etiology, infectious possibilities
MRI of brain, thoracic spine, and lumbar spine with and without contrast: Spinal cord: '1.2 cm in length T2/STIR hyperintense lesion at the C5 level. Smaller patchy T2/STIR hyperintense lesions at the C2, C6 and C7-T1 levels. Ill-defined patchy
T2/STIR hyperintensity throughout the lower thoracic spine from T8 the through T11 levels'
Brain MRI demonstrated few periventricular lesions, non-enhancing
Completed LP which is unrevealing for significant findings with oligoclonal bands pending
Switched from Atorvastatin to Ezetimibe for cholesterol control, due to leg cramping
Plan
Await oligoclonal bands
Await results from blood work
Continue newly initiated methylprednisolone 1 g IV probably for 5 doses started on 04/05/2024
Patient suggesting she would be initiating ocrelizumab as an outpatient
As needed medication for headache
Eventual outpatient neuro-ophthalmologic and subspecialist in field of MS evaluation
Will continue to follow.
Subjective/Objective
Subjective Data
Date of Service: April 09, 2024
No new changes
Objective Data
Vital Signs
Temp Pulse Resp BP Pulse Ox
36.6 C 92 20 142/80 92
04/09/24 07:37 04/09/24 07:37 04/09/24 07:37 04/09/24 07:37 04/09/24 07:37
Lab Results
04/07/24 08:06
04/07/24 08:06
PT 14.0 Sec (11.4-14.6) 04/07/24 08:06
INR 1.05 04/07/24 08:06
Sodium 144 mmol/L (135-145) 04/07/24 08:06
Potassium 3.9 mmol/L (3.5-5.1) 04/07/24 08:06
BUN 21 mg/dl (7-17) H 04/07/24 08:06
Glucose 141 mg/dl (70-99) H 04/07/24 08:06
Calcium 9.3 mg/dl (8.4-10.2) 04/07/24 08:06
LDL Cholesterol, Calc 66 mg/dl 04/06/24 10:41
Vitamin B12 657 pg/ml (239-931) 04/06/24 06:20
Patient Allergies
ciprofloxacin [From Cipro] Allergy (Verified 04/05/24 16:11)
Itching
ciprofloxacin HCl [From Cipro] Allergy (Verified 04/05/24 16:11)
Itching
Review of Systems
-
History Source: Patient
All other systems: Reviewed and negative
Physical Exam
-
General: No Apparent Distress and Appears Stated Age
Eyes: Round OU, [place] Conjunctivae and No Ptosis
HEENT: Anicteric and Moist Mucous Membranes
Neck: Full Range of Motion
Respiratory: No Dyspnea
Cardiac: No JVD
GI: Non-distended
Extremities: No Clubbing, No Cyanosis and No Edema
Psych: Intact Judgement/Insight
Extended Neurological Exam
Mood & Affect: Depressed
Attention Span & Concentration: Awake, Alert and Interactive
Memory: Unremarkable
Tremor: Hand Tremor Absent and Head Tremor Absent
Speech: Quality Unremarkable and Quantity Unremarkable
Cranial Nerve II: Left Eye: Pupillary Size Unremarkable and Visual [place] Grossly Intact
Cranial Nerve II: Right Eye: Pupillary Size Unremarkable and Visual [place] Grossly Intact
Cranial Nerves III, IV, : Extraocular Movement: Grossly Intact
Cranial Nerve VII: Facial Symmetry: Normal Facial Symmetry
Cranial Nerve VIII: Hearing: Unremarkable Hearing to Normal Conversational Volume
Cranial Nerve XI: Shoulder Shrug: Unremarkable
Muscle Strength, Overall: Spontaneously Moves (All extremities)
Muscle Bulk & Tone: Bulk Unremarkable and Tone Unremarkable
Coordination: Reaches for Objects without Difficulty
Data Reviewed
-
Medical Test Reports: Report Reviewed
Reviewed with: Patient and Family
Old Records: Summarized
Past History
Past History
ED Past Medical History: Other (Kidney stones, medullary sponge kidney, ddd, UTI, right branch retinal artery occlusion 11/2023, RLS) and Other (vitamin B12 defic., vitamin D defic., ferritin defic.)
ED Past Surgical History: Urological (urology stent)
Social History
Tobacco: Non-smoker
Alcohol: None
Drug: None
Personal:
Living: with family
Family History
Family History: Other (Father had kidney stones ); Negative Diabetes, Hypertension, Early CAD, Asthma or Cancer
Medications
-
Medications:
Generic Name Dose Route Start Last Admin
Trade Name Freq PRN Reason Stop Dose Admin
Acetaminophen 1,000 mg 04/06/24 10:00 04/08/24 07:38
Acetaminophen 500 Mg Tablet PO 05/04/24 09:59 1,000 mg
DAILY DANIELLE Administration
Alprazolam 0.25 mg 04/06/24 03:45 04/09/24 00:46
Alprazolam 0.25 Mg Tablet PO 05/04/24 03:44 0.25 mg
DAILY PRN Administration
anxiety
Alprazolam 0.25 mg 04/06/24 17:00 04/08/24 07:38
Alprazolam 0.25 Mg Tablet PO 05/04/24 16:59 0.25 mg
DAILY DANIELLE Administration
Aspirin 81 mg 04/05/24 18:25 04/08/24 18:27
Aspirin 81 Mg (Enteric Coated) Tablet PO 05/03/24 18:24 81 mg
QPM DANIELLE Administration
Bisacodyl 10 mg 04/05/24 17:23
Bisacodyl 10 Mg Rectal Suppository RECTAL 05/03/24 17:22
[id number] PRN
constipation
Cholecalciferol 50 mcg 04/06/24 08:00 04/08/24 09:33
Cholecalciferol (Vitamin D3) 50 Mcg Tablet (2,000 Units) PO 05/04/24 07:59 50 mcg
DAILY DANIELLE Administration
Cyanocobalamin 1,000 mcg 04/06/24 08:00 04/08/24 07:39
Cyanocobalamin 1,000 Mcg Tablet PO 05/04/24 07:59 1,000 mcg
DAILY DANIELLE Administration
Dextrose 12.5 grams 04/05/24 20:00
Dextrose 50% (0.5 Grams/Ml) 50 Ml Syringe IV 05/03/24 19:59
[id number] PRN
hypoglycemia
Protocol
Ezetimibe 10 mg 04/07/24 22:00 04/08/24 21:15
Ezetimibe (Zetia) 10 Mg Tablet PO 05/05/24 21:59 10 mg
HS DANIELLE Administration
Enoxaparin Sodium 40 mg 04/05/24 18:25 04/08/24 21:15
Enoxaparin Sodium 40 Mg/0.4 Ml Syringe SC 05/03/24 18:24 Not Given
QPM DANIELLE
Glucagon 1 mg 04/05/24 20:00
Glucagon 1 Mg Vial IM 05/03/24 19:59
PRN PRN
hypoglycemia - no IV access
Protocol
Methylprednisolone Sodium 258 mls @ 258 mls/hr 04/08/24 08:00 04/08/24 10:23
Succinate 1,000 mg/ Sodium IV 04/09/24 08:59 258 mls
Chloride Q24H DANIELLE Administration
Ibuprofen 400 mg 04/05/24 18:25 04/06/24 21:24
Ibuprofen 200 Mg Tablet PO 05/03/24 18:24 400 mg
Q6HPRN PRN Administration
back pains
Insulin Aspart 0 units 04/06/24 07:30 04/08/24 15:53
Insulin Aspart Low Resistance 300 Units/3 Ml Pen.Injctr SC 05/04/24 07:29 Not Given
AC DANIELLE
Protocol
Polyethylene Glycol 17 grams 04/05/24 17:23
Polyethylene Glycol Powder 17 Grams Packet PO 05/03/24 17:22
DAILYPRN PRN
constipation
Senna/Docusate Sodium 1 tablet 04/05/24 17:23
Docusate W/Senna (Chelsey-Colace) Tablet PO 05/03/24 17:22
BIDPRN PRN
constipation
Sodium Chloride 0 flush 04/05/24 19:00
Sodium Chloride 0.9% (Flush) Syringe IV 05/03/24 18:59
PER PROTOCOL DANIELLE
[2024-04-09 07:52] LABS: Glucose - Point of Care 122 mg/dl (70-99)
[2024-04-09] MEDS: NOVOLOG FLEXPEN-LOW RESISTANCE SC (08:03)
[2024-04-09 08:16] LABS: ANA Pattern Homogeneous; ANA, HEp-2, IgG Detected (<1:80)
[2024-04-09] MEDS: TYLENOL 1000 MG PO (08:18)
[2024-04-09] MEDS: VITAMIN D3 (cholecalciferol) 50 MCG PO (08:19)
[2024-04-09] MEDS: VITAMIN B-12 1000 MCG PO (08:19)
--- NOTE | 2024-04-09 08:54 | W.PN.HOSP.TC ---
Addendum entered and electronically signed by Chris Weber MD 04/09/24 14:42:
I saw and evaluated the patient. I reviewed the resident�s note and agree with findings and plan as documented in the resident�s note except for changes in my documentation
53-year-old female with history of monocular vision loss was suspected secondary CVA. CVA workup was negative and was started on injections for macular degeneration. Outpatient MRI showed demyelination cervical spine
Thoracic spine MRI-several scattered nonenhancing T2 flair hyperintense cord lesions suspicious for demyelinating disease
Lumbar spine MRI-several scattered nonenhancing T2 flair hyperintense cord lesions suspicious for demyelinating lesions
MRI of the brain-probable demyelinating lesion within the upper cervical cord likely secondary to MS. No convincing intracranial demyelinating disease.
Abdomen: Soft, NT
Extremities: No edema
FAMILY SERVICES COORDINATOR: mild numbness of fingers only.
# Suspected multiple sclerosis with paresthesias and weakness
Patient has been following up with outpatient neurology
History of mono ocular visual disturbance
LP performed 04/06/2024-oligoclonal bands pending. VDRL nonreactive
Patient started on Solu-Medrol 1 g IV daily- had for 5 days
Should be entertained the diagnosis of NMO? (AQp4 AB pending).MRI reviewed with radiologist Dr Skinner -no optic nerve/chiasm lesions or longitudinal lesions which will be typical of NMO .
And to start Ocrevus as outpatient
# Lupus antibody positive with a titer of 1 : 160, homogeneous pattern-OP Rheum eval recommended
# Anxiety on as needed Xanax as outpatient
# Hyperlipidemia-on atorvastatin. Changed to Zetia given muscle cramps
# DDD
# DVT prophylaxis-Lovenox
# Full code
Patient to be following up with neuro-school photograph editor at [facility]. Discussed that she is not allergic to statin and may even be able to try a different statin or a lower dose as outpatient. I will defer this to her primary
physician and I discussed this with patient also.
Several tests are pending. Discussed with neurology okay for discharge and follow-up as outpatient for the results. Patient is aware that results are pending and that her workup and treatment is not complete.
Total discharge coordination time more than 30 minutes
Part of this note was created using voice recognition system. Occasional wrong word or��sound alike� substitutions may have inadvertently occurred due to the inherent limitations of voice recognition software. If noted kindly bring it to my
attention for correction.
More than 30 minutes spent in discharge including
Final examination of the patient
Summarizing hospital stay
Instructions for continuing care to all relevant caregivers
Preparation of discharge records, prescriptions, and referral forms
Total time spent (in minutes): 33 min
Original Note:
Today's Communication/Plan
-
d/c home
fu with neuro outpatient
Assessment / Plan
Assessment / Plan
53-year-old female with DDD, nephrolithiasis/medullary sponge kidney, H/O ocular CVA presenting to the ED today after being alerted of an abnormal outpatient MRI finding.
Acute onset abdominal then passed bandlike sensation leading to MRI of cervical spine suggesting transverse myelitis with inflammation at C5-6.
#Suspected multiple sclerosis
#Paresthesias and weakness to extremities
#H/O monocular visual disturbance
-Has been following with outpatient neurology, symptomatic with paresthesias from months to years
-Had an outpatient MRI of the C-spine with evidence of demyelination, was told to come to the ED
-MRI of L-spine also showed evidence of demyelinating lesions as well; unable to temporally relate findings
-LP was performed on 04/06/2024, fluid studies including oligoclonal bands are pending
-Additional serologic workup is pending though do not expect positivity; Lyme testing negative
-completed IV Solu-Medrol 1 g daily, day 09/10
-Follow-up oligoclonal bands from LP on 04/06
-Plan for outpatient neuro-ophthalmology at discharge
-Patient suggesting she would be initiating ocrelizumab as an outpatient
#Positive OVIDIO screening
-Serological studies from admission did show a positive OVIDIO
-Spoke with patient and discussed how this is nonspecific, often positive in hospitalized patients
-Suspect the predominant process is demyelination from multiple sclerosis as listed above
-Advised patient that she very likely does not have lupus or other connective tissue diseases
Switched from Atorvastatin to Ezetimibe for cholesterol control, due to leg cramping by neuro
DVT prophylaxis: Lovenox
Diet: Regular
CODE STATUS: Full code
Anticipated Discharge: Today
Subjective/Interval History
-
Date of Service: April 09, 2024
Seen and examined the bedside. No acute events reported overnight. AFVSS this morning
Objective Data
-
Vital Signs:
Vital Signs
Temp Pulse Resp BP Pulse Ox
97.8 F 92 20 142/80 92
04/09/24 07:37 04/09/24 07:37 04/09/24 07:37 04/09/24 07:37 04/09/24 07:37
I&O
04/08/24 04/09/24 04/10/24
06:59 06:59 06:59
Intake Total 1003 / 1003 1750 / 1750
Output Total 1070 / 1070
Balance 1003 / 1003 680 / 680
Review of Systems
-
History Source: Patient
All other systems: Reviewed and negative
Physical Exam
-
General: Well Developed, Well Nourished, No Apparent Distress and Comfortable
HEENT: Normocephalic, Atraumatic, Moist Mucous Membranes and Anicteric
Respiratory: Clear to Auscultation and Non Labored Respirations
Cardiac: Regular Rhythm and S1/S2; Negative Murmur, Rub or Gallop
GI: Soft, Nontender, Nondistended and Normal Bowel Sounds
Musculoskeletal: No Clubbing, No Cyanosis and No Edema
Skin: Warm and Dry; Negative Rash
Neuro: AO x 3; Negative No Motor Deficits (4+ MMS to upper extremities bilaterally, 5/5 lower extremities) or No Sensory Deficits (Reduced sensation in the hands)
Psych: Calm
Data Reviewed
-
Labs: Labs Reviewed by me
[2024-04-09] MEDS: SOLU-MEDROL 258 MG IV (09:26)
[2024-04-09 12:14] LABS: Glucose - Point of Care 184 mg/dl (70-99)
[2024-04-09] MEDS: NOVOLOG FLEXPEN-LOW RESISTANCE 1 UNITS SC (12:23)
[2024-04-09 15:05] VITALS: BP 146/83
--- NOTE | 2024-04-09 15:20 | CM ---
Chart reviewed. Pt to d/c today
Per PT/OT, recommend OP therapy at this time
TT hospitalist to provide pt script, hospitalist informed that resident will complete.
Plan: Home w/ OP therapy
[2024-04-09 15:35] VITALS: BP 139/89; BP 139/90; PULSE 94; O2SAT 95
--- NOTE | 2024-04-09 15:44 | W.DCSUMMARY ---
Discharge Summary
Discharge Data
Date of Admission: 04/05/24
Date of Discharge: 04/09/24
-
Pending Results: Yes
Additional Pending Results:
Oligoclonal AB, Some spinal fluid labs , pending at discharge
Hospital Course
Discharging Physician : Alfred Sommers MD ; Chris Weber MD
Disposition : Home
Primary care physician : Yahaira Gordon
Principal Discharge diagnosis : Suspected multiple sclerosis
Chronic Discharge diagnosis : DDD, nephrolithiasis/medullary sponge kidney, H/O ocular CVA, anxiety, hyperlipidemia
Hospital Course : 53-year-old female with DDD, nephrolithiasis/medullary sponge kidney, H/O ocular CVA presenting to the ED today after being alerted of an abnormal outpatient MRI finding.
Acute onset abdominal then passed bandlike sensation leading to MRI of cervical spine suggesting transverse myelitis with inflammation at C5-6. MRI of L-spine also showed evidence of demyelinating lesions as well; unable to temporally relate
findings. LP was performed on 04/06/2024, fluid studies including oligoclonal bands are pending. Patient received IV Solu-Medrol 1 g daily for 5 days. Patient was stable upon discharge. Recommended to follow-up outpatient neuro/ophthalmology.
Also recommended to follow-up with MS specialist at [facility]. Patient suggesting she would be initiating Ocrelizumab with neurology as an outpatient. She will follow-up with rheumatology to discuss positive OVIDIO. Given complaints of muscle
aches and cramps her atorvastatin was switched to ezetimibe for cholesterol control. She will follow-up with cardiology on further recommendation to continue aspirin 81 mg which was started after ocular CVA. Patient verified understanding and
agreed with the plan.
Important imaging findings : Brain MRI: IMPRESSION:
Probable demyelinating lesion within the upper cervical spinal cord as described, likely secondary to multiple sclerosis. No abnormal enhancement. No convincing evidence for intracranial demyelinating disease.
No acute intracranial abnormality noted.
Lumbar MRI: IMPRESSION:
Several scattered nonenhancing T2/FLAIR hyperintense cord lesions as described, suspicious for demyelinating lesions of multiple sclerosis. No evidence for active disease.
Mild multilevel degenerative changes of the thoracolumbar spine.
Procedure: Fluoroscopically guided lumbar puncture. Results pending
Discharge Plan
-
Patient Disposition: Home (Routine Discharge)
Discharge Diagnosis/Procedures: Multiple sclerosis
Condition: Good
Diet: No restrictions
Activity: As tolerated
Driving Restrictions: No driving for 24 hours
Bathing Restrictions: None
Blood Work: None
Others Tests: None
Other Services: PT and OT
Activity Restrictions/Additional Instructions:
Schedule follow-up appointment with family doctor after discharge, should be seen within 1 to 2 weeks
Call neurologist office to schedule follow-up appointment, referral provided below
You have a test called OVIDIO which is positive. Follow-up with a charge machine operator follow-up with a Neuro-associate professor of biostatistics
Chest for AQp4 AB, MOGAD , Oligoclonal AB, Some spinal fluid labs , pending at discharge. Please see for results.
Take Ibuprofen if needed only on a full stomach. Take OTC Pepcid if you have heart burn.
Follow-up with the physician who started you on aspirin to see if it needs to be continued
Referrals:
Brady Alex MD [Active] - in one to two weeks
Don Paez MD [Active] -
Yahaira Gordon DO [Family Provider] - in less than 1 week
Additional Discharge Medication Instructions: Stop aspirin, was for suspected stroke however your previous visual symptoms are more likely due to MS
Stop atorvastatin due to associated cramping, start ezetimibe 10 mg nightly
Continue Vitamin D supplement daily
Prescriptions:
New
ezetimibe 10 mg Tablet
10 mg PO HS 30 Days Qty: 30 0RF
aspirin 81 mg Tablet,Delayed Release (Dr/Ec)
81 mg PO QPM Qty: 30 0RF
Continued
cyanocobalamin (vitamin B-12) 1,000 mcg Tablet
1,000 mcg PO DAILY
ibuprofen [Advil] 200 mg Tablet
400 mg PO Q6HPRN PRN (Reason: back pains)
cholecalciferol (vitamin D3) [Vitamin D3] 50 mcg (2,000 unit) Tablet
50 mcg PO DAILY
alprazolam [Xanax] 0.25 mg Tablet
0.25 mg PO DAILY PRN (Reason: anxiety)
Patient Comments:
ordered by doctor on as need basis
Discontinued
atorvastatin [Lipitor] 40 mg Tablet
40 mg PO QPM
aspirin 81 mg Tablet,Delayed Release (Dr/Ec)
81 mg PO QPM
Discharge Orders:
Discharge Patient (As Directed); Ordered 04/09/24
Ordered By: Alfred Sommers
Discharge Date and Time
Print Language: BENINESE
[2024-04-09 22:59] LABS: Albumin Index 4.6 ratio (0.0-9.0); Albumin, CSF 19 mg/dL (0-35); Albumin, Serum 4105 mg/dL (3500-5200); CSF IgG Synthesis Rate 7.8 mg/d (<=8.0); CSF IgG/Albumin Ratio 0.24 ratio (0.09-0.25); CSF Oligoclonal Bands Positive (Negative); CSF Oligoclonal Bands Number 17 Bands (0-1); IgG 1041 mg/dL (768-1632); IgG, CSF 4.5 mg/dL (0.0-6.0)
== END 2024-04-09 16:13 | disposition home or self-care (01) | DRG 59 ==
LOC: 4 WEST ACU 17:30
PROVIDERS: Physician Assistant; Radiology Vascular & Interventional Radiology; ADMITTING PHYSICIAN Internal Medicine; ATTENDING PHYSICIAN Hospitalist; CONSULT PHYSICIAN Psychiatry & Neurology Neurology; EMERGENCY PHYSICIAN Emergency Medicine; FAMILY PHYSICIAN Family Medicine
PROC: 009U3ZX Drainage of Spinal Canal, Percutaneous Approach, Diagnostic (ICD-10-PCS; 2024-04-06)
DX: G35 Multiple sclerosis (principal); Q61.5 Medullary cystic kidney; F41.9 Anxiety disorder, unspecified; R03.0 Elevated blood-pressure reading, without diagnosis of hypertension; M47.815 Spondylosis without myelopathy or radiculopathy, thoracolumbar region; H93.A1 Pulsatile tinnitus, right ear; E78.00 Pure hypercholesterolemia, unspecified; F40.240 Claustrophobia; G25.81 Restless legs syndrome; Z79.82 Long term (current) use of aspirin; Z79.899 Other long term (current) drug therapy; Z88.1 Allergy status to other antibiotic agents; Z86.73 Personal history of transient ischemic attack (TIA), and cerebral infarction without residual deficits
CPT/HCPCS: 62328; 70553; 72157; 72158; 80048; 80053; 80061; 82040; 82042; 82306; 82525; 82607; 82728; 82784; 82945; 82962; 83735; 83916; 84157; 85025; 85027; 85610; 85652; 86038; 86039; 86592; 86618; 87015; 87070; 87116; 87205; 88108; 89051; 96365; 97110; 97116; 97163; 97167; 97530; 99285; A9575

== ENCOUNTER 2024-07-07 11:24 | Observation (INO) | payer BC, SELFPAY ==
[2024-07-07] VITALS (14 sets, daily range): BP systolic 111–163; BP diastolic 77–101; BMI 35.9; BMI 34.8
[2024-07-07 03:02] LABS: % Basophils 0.2 % (0-2); % Eosinophils 0.5 % (0-6); % Immature Granulocytes 0.3 % (0-0.5); % Lymphocytes 7.7 % (20.5-51.1); % Monocytes 3.5 % (1.7-9.3); % Neutrophils 87.8 % (42.2-75.2); Absolute Lymphocytes 0.4 10^3/uL (1.2-3.4); Absolute Monocytes 0.2 10^3/uL (0.1-0.6); Hematocrit 36.8 % (37.0-47.0); Hemoglobin 12.9 g/dL (12.0-16.0); Mean Corp Hgb Conc. 35.1 g/dL (33.0-37.0); Mean Corpuscular Hgb 30.3 pg (27.0-31.0); Mean Corpuscular Volume 86.4 fL (81.0-99.0); Mean Platelet Volume 9.3 fL (7.4-10.4); Nucleated Red Blood Cells % 0 %; Platelet Count 160 10^3/uL (130-400); Red Blood Cell Count 4.26 10^6/uL (4.20-5.40); Red Cell Dist. Width 12.6 % (11.5-14.5); White Blood Cell Count 5.7 10^3/uL (4.8-10.8)
[2024-07-07 03:13] LABS: Lactic Acid 2.7 mmol/L (0.7-2.0)
[2024-07-07 03:16] LABS: ALT (SGPT) 18 U/L (0-35); AST (SGOT) 20 U/L (14-36); Albumin 4.8 g/dl (3.5-5.0); Alkaline Phosphatase 98 U/L (38-126); Blood Urea Nitrogen 16 mg/dl (7-17); Calcium 9.3 mg/dl (8.4-10.2); Carbon Dioxide 21 mmol/L (22-30); Chloride 102 mmol/L (98-107); Glucose 121 mg/dl (70-99); Potassium 3.7 mmol/L (3.5-5.1); Sodium 138 mmol/L (135-145); Total Bilirubin 1.3 mg/dl (0.2-1.3); eGFR > 60.00
[2024-07-07 03:19] LABS: COVID-19 Antigen Negative (Negative)
[2024-07-07] MEDS: TORADOL 15 MG IV ×2 (06:34→09:44)
[2024-07-07] MEDS: TYLENOL 1000 MG PO (06:34)
[2024-07-07] MEDS: NSS 1000 IV ×3 (06:37→20:05)
[2024-07-07 06:50] LABS: HCG, Urine Qualitative Screen Negative
[2024-07-07 06:51] LABS: Urine Albumin Negative (Neg - Trace); Urine Bilirubin Negative (Negative); Urine Character Clear (Clear); Urine Color Yellow; Urine Glucose Negative (Negative); Urine Ketone Negative (Negative); Urine Leukocyte Negative (Negative); Urine Nitrite Negative (Negative); Urine Occult Blood 3+ (Negative); Urine Urobilinogen Negative (Neg - 1+)
--- NOTE | 2024-07-07 06:54 | ED.GENMED ---
History of Present Illness
General
Chief Complaint: Fever
Source: patient
Exam Limitations: none
Time Seen by Provider: 07/07/24 06:05
Nursing documentation reviewed up to this point in time: agreed with
History of Present Illness
History of Present Illness:
53-year-old female with a past medical history of MS who presents to the ER for evaluation of flulike symptoms. Of note patient reports that she started Kesimpta (ofatumumab) injections yesterday had her first dose which she injected into her left
thigh. She says that in the evening she started with flulike symptoms�she describes body aches and muscle cramping, fever and chills, nausea and vomiting. She denies any symptoms prior to starting her medication�was not having any fever or chills,
URI symptoms. She has not had any cough, shortness of breath, chest pain. No abdominal pain or diarrhea. She was told that she could have flulike symptoms as a side effect and took some Tylenol today but she felt it did not help.
Past History
Past History
ED Past Medical History: Other (Kidney stones, medullary sponge kidney, ddd, UTI, right branch retinal artery occlusion 11/2023, RLS) and Other (vitamin B12 defic., vitamin D defic., ferritin defic.)
ED Past Surgical History: Urological (urology stent)
Social History
Tobacco: Non-smoker
Alcohol: None
Drug: None
Personal:
Living: with family
Family History
Family History: Other (Father had kidney stones ); Negative Diabetes, Hypertension, Early CAD, Asthma or Cancer
Review of Systems
Review of Systems
All Other Systems: ROS reviewed and negative except as documented in HPI and ROS
Constitutional: Reports fever, fatigue and chills
EENT: Denies sore throat or runny nose
Respiratory: Denies cough or trouble breathing
Cardiac: Denies chest pain or palpitations
ABD/GI: Reports nausea and vomiting; Denies abdominal pain or diarrhea
: Denies dysuria or flank pain
Musculoskeletal: Reports muscle pain (Myalgias)
Neurological: Denies dizzy or headache
Phy Exam
Physical Exam
Physical Exam:
General: Awake, alert, oriented x3
Head: Normocephalic, atraumatic
Eyes: Conjunctiva normal, EOMI
Throat: Airway intact, handling secretions
Neck: Trachea midline, supple without meningismus
Lungs: Clear to auscultation bilaterally, no wheezing, rales, rhonchi
Heart: Regular rate and rhythm, no murmurs, gallops, or rubs
Abd: Soft, non distended, nontender
Neuro: No gross deficits
Skin: no rash
Extremities: No edema in extremities, equal pulses in all extremities
Scores
Heart Failure Risk
Heart Failure Risk Score: Not Applicable
Heart Score for Chest Pain Patients
STEMI patient?: Not applicable
Withdrawal Assessment of Alcohol
Withdrawal Assessment Completed?: Not applicable
Sepsis
Sepsis Screening
Sepsis Assessment: Sepsis
Sepsis Screening: Lactate >2mmol/L
Sepsis Screen
Sepsis Screen: Sepsis
Date: 07/07/24
Time: 10:39
Course
Orders/Labs/Results
Orders:
Orders
07/07/24 02:51
COVID-19 Antigen Urgent
Source: Nasal Swab
Complete Blood Count/With Diff Urgent
Comprehensive Metabolic Panel Urgent
Lactic Acid Urgent
Blood Culture Urgent
PATI Source: Blood/Venous
Specimen Description:
Influenza A+B Rapid Molecular Urgent
PATI Source: Nasal Swab
Specimen Description:
07/07/24 06:06
Test Result ONCE
07/07/24 06:21
0.9% Sodium Chloride 1000 ml [Nss] 1,000 ml IV BOLUS
Acetaminophen [Tylenol] 1,000 mg PO NOW STA
Ketorolac [Toradol] 15 mg IV NOW STA
07/07/24 06:38
CPK [Creatine Phosphokinase] Urgent
HCG, Urine Qualitative Screen Urgent
Date Specimen was Collected: 07/07/24
Time Specimen was Collected: 06:31
Urinalysis Reflex To Culture Urgent
Date Specimen was Collected: 07/07/24
Time Specimen was Collected: 06:31
Urine Microscopic Reflex Cult Urgent
Urine Culture Urgent
PATI Source: U
Specimen Description:
Date Specimen was Collected: 07/07/24
Time Specimen was Collected: 06:31
07/07/24 06:59
CR Chest - 2 Views Urgent
Comment:
Reason For Exam: fever
07/07/24 07:16
Ondansetron Injectable [Zofran] 4 mg IV NOW STA
07/07/24 07:43
Lactate Level [Lactic Acid] Urgent
07/07/24 09:40
Ketorolac [Toradol] 15 mg IV NOW STA
07/07/24 09:41
CefTRIAXone [Rocephin] 1,000 mg IV NOW STA
07/07/24 09:44
Electrocardiogram (*1) Urgent
Reason for Study: QTc Monitoring
EKG- Treatment ONCE
07/07/24 10:00
0.9% Sodium Chloride 1000 ml [Nss] 1,000 ml IV 100 mls/hr
Abnormal Lab Results
07/07/24 07/07/24
02:51 06:38
Hct 36.8 L %
(37.0-47.0)
Absolute Lymphs (auto) 0.4 L 10^3/uL
(1.2-3.4)
Neutrophils % 87.8 H %
(42.2-75.2)
Lymphocytes % 7.7 L %
(20.5-51.1)
Carbon Dioxide 21 L mmol/L
(22-30)
Glucose 121 H mg/dl
(70-99)
Lactic Acid 2.7 H mmol/L
(0.7-2.0)
Ur Occult Blood Reflex 3+ A
(Negative)
Urine RBC 7-10 A /HPF
(0-2)
Urine WBC (Reflex) 21-25 A /HPF
(0-5)
07/07/24 02:51
07/07/24 02:51
Vital Signs
Initial and Last Documented VS:
Initial Vital Signs
Temp Pulse Resp BP Pulse Ox
38.9 C H 140 26 123/82 96
07/07/24 02:58 07/07/24 02:58 07/07/24 02:58 07/07/24 02:58 07/07/24 02:58
Last Documented Vital Signs
Temp Pulse Resp BP Pulse Ox
37.0 C 98 14 125/92 92
07/07/24 04:10 07/07/24 09:45 07/07/24 09:45 07/07/24 09:00 07/07/24 09:30
MDM/Problems Addressed
Differential Diagnosis Includes:
Medication side effect, UTI, pneumonia, viral syndrome
MDM/Problems Addressed:
53-year-old female who started ofatumumab for MS today started with flulike syndrome in the evening�myalgias, fever and chills, nausea and vomiting. Febrile here with tachycardia otherwise acceptable vital signs. Physical exam as above. Labs sent
in triage including a CBC and a CMP essentially unremarkable. Marginal elevation of lactate will repeat. Add CPK. Her urinalysis is equivocal--somewhat lower suspicion for infection but with multiple SIRS will treat. hCG negative. COVID and flu
negative. Will add a chest x-ray. Treat with Tylenol, Toradol, fluids. Reassess after the above.
CPK normal. Chest x-ray reviewed by me shows no pneumonia. Lactate trended down after fluids. Clinical reassessment patient having nausea and vomiting once again. She received Zofran from EMS will repeat.
Patient still having nausea, severe myalgias and chills/muscle cramps despite treatment as above. She does not feel that she can go home in her current condition. Will check EKG for QTc monitoring prior to additional antiemetics. Continue with
fluid resuscitation. She does have multiple SIRS but I suspect that all of this is a side effect from her recent medication, viral syndrome a consideration. Covered for urinary tract infection because she had some pyuria in the setting of multiple
SIRS criteria but sample did appear contaminated and she has no urinary symptoms so I somewhat doubt this is truly a UTI. Plan to admit for continued supportive care. Discussed case with hospitalist.
Chronic conditions affecting care:
MS
*Pulse Oximetry
Patient hypoxic: no
*EKG
Interpreted by ED Provider?: Yes
Heart Rate: 89
Rate: normal
Rhythm: sinus and PVC's
[place]: normal axis
Interval: normal interval
QRS Pattern: normal QRS
Ischemia: other (Inferior infarct age undetermined)
*Critical Care Note
Total Time (30-74mins, 75-104mins- exclusive of procedures): Not Applicable
Data Reviewed
Review of Other/Old Records Reveals: Labs and Records
Source: patient and records
Patient Management
Discussion with other providers: Hospitalist (Discussed with hospitalist)
Escalation/DeEscalation of care consider admission/obs:
Admission indicated
ED Attending Note
-
Portions of this chart may have been created with voice recognition software.� Occasional wrong word or��sound alike� substitutions may have occurred due to the inherent limitations of voice recognition software.
Discharge Plan
Departure
Patient Disposition: Admit
Date of Disposition: 07/07/24
Time of Disposition: 09:48
Admit to doctor: Do
Presentation/result/management discussed w/ accepting MD/DO: Hospitalist
Discharge Problem:
Dehydration, Nausea and vomiting, Myalgia
Prescriptions:
No Action
cyanocobalamin (vitamin B-12) 1,000 mcg Tablet
1,000 mcg PO DAILY
ibuprofen [Advil] 200 mg Tablet
400 mg PO Q6HPRN PRN (Reason: back pains)
cholecalciferol (vitamin D3) [Vitamin D3] 50 mcg (2,000 unit) Tablet
50 mcg PO DAILY
alprazolam [Xanax] 0.25 mg Tablet
0.25 mg PO DAILY PRN (Reason: anxiety)
Patient Comments:
ordered by doctor on as need basis
ezetimibe 10 mg Tablet
10 mg PO HS 30 Days Qty: 30 0RF
aspirin 81 mg Tablet,Delayed Release (Dr/Ec)
81 mg PO QPM Qty: 30 0RF
Referrals:
Yahaira Gordon DO [Family Provider] -
Interventions
Interventions:
*Risk Screen - Suicide Last Done: 07/07/24 04:34
*General Assessment Last Done: 07/07/24 07:11
*Neglect/Abuse Screening Last Done: 07/07/24 04:34
ED- Fall Risk Assessment Last Done: 07/07/24 07:12
*ED COVID-19 Vaccine History Last Done: 07/07/24 04:34
ED- Neurological Assessment Last Done: 07/07/24 04:11
ED-Skin Assessment Last Done: 07/07/24 04:11
Discharge Date and Time
Print Language: POLISH
[2024-07-07 06:58] LABS: Creatine Phosphokinase 56 U/L (30-135)
[2024-07-07 07:22] LABS: Urine Squamous Cell 16-20 /LPF (Few)
[2024-07-07 07:23] LABS: Urine White Cell 21-25 /HPF (0-5)
[2024-07-07] MEDS: ZOFRAN 4 MG IV (07:49)
[2024-07-07 08:08] LABS: Lactic Acid 1.5 mmol/L (0.7-2.0)
[2024-07-07] MEDS: ROCEPHIN 1000 MG IV (09:44)
--- NOTE | 2024-07-07 11:16 | HPS.HSE ---
Family Physician
-
Family Physician: Yahaira Gordon
Chief Complaint
-
Fever, Chills, Nausea, Fast Heart Rate, Body Aches
History of Present Illness
53-year-old female with a past medical history of Multiple Sclerosis, DDD, nephrolithiasis/medullary sponge kidney and ocular CVA who presented to the ER for evaluation of flulike symptoms. Patient reported that she started Kesimpta (ofatumumab)
injections yesterday, had her first dose which she injected into her left thigh. The injections were provided by a neurologist from [facility], but patient says she also sees [place] neurologist Dr. Alex outpatient. She says that in the
evening yesterday, after her injection, she started with flulike symptoms including body aches and muscle cramping, fever and chills, nausea and vomiting. Prior to her injection yesterday, she denied any symptoms fever, nausea, vomiting, body aches
or any other new symptoms. She denied any cough, shortness of breath, chest pain, abdominal pain or diarrhea. She was told that she could have flulike symptoms as a side effect and took some Tylenol today without significant relief.
Medical History
Past Medical History
Past Medical History: Reports Other (As per HPI above)
Past Surgical History: Reports Urological (urology stent)
Social History
Tobacco: Non-smoker
Alcohol: None
Drug: None
Family History
Family History: Diabetes, Hypertension and Other (Myasthenia Gravis)
Allergies / Home Medications
Allergies reflects when Allergies were last updated in [employer].
Home Medications with original date entered in [employer]
Allergy/Medication List:
Allergies
Allergy/AdvReac Type Severity Reaction Status Date / Time
ciprofloxacin [From Cipro] Allergy Itching Verified 07/07/24 03:03
ciprofloxacin HCl Allergy Itching Verified 07/07/24 03:03
[From Cipro]
Penicillins Allergy Rash Verified 07/07/24 03:04
Home Medications
alprazolam 0.25 mg tablet (Xanax) 0.25 mg PO DAILY PRN anxiety 04/05/24
cholecalciferol (vitamin D3) 50 mcg (2,000 unit) tablet (Vitamin D3) 50 mcg PO DAILY Supplement 04/05/24
cyanocobalamin (vitamin B-12) 1,000 mcg tablet 1,000 mcg PO DAILY Supplement 04/05/24
ibuprofen 200 mg tablet (Advil) 400 mg PO Q6HPRN PRN back pains 04/05/24
ezetimibe 10 mg tablet 10 mg PO HS High cholesterol 1 month #30 tabs 04/08/24
aspirin 81 mg tablet,delayed release 81 mg PO QPM Blood clot prevention/tx #30 tabs 04/09/24
Review of Systems
-
A 12 point ROS was completed and negative except as noted: Yes
Physical Exam
Vital Signs
Vital Signs
Temp Pulse Resp BP Pulse Ox
98.6 F 92 15 138/93 95
07/07/24 04:10 07/07/24 10:30 07/07/24 10:30 07/07/24 10:00 07/07/24 10:30
Physical Exam
General: No Apparent Distress, Fever and Chills
HEENT: NormoCephalic and Moist mucous membranes
Respiratory: Clear
Cardiac: S1/S2 and Tachycardia
GI: Soft, Non Tender and Normal Bowel Sounds
Musculoskeletal: No Cyanosis
Skin: Warm and Dry
Neuro: Awake, Alert, AO x 3, Nonfocal/grossly intact and Cranial Nerves Intact
Psych: Calm and Intact Judgment/Insight
Laboratory Results
-
07/07/24 02:51
07/07/24 02:51
Laboratory Results
Lactic Acid 1.5 mmol/L (0.7-2.0) 07/07/24 07:43
Total Bilirubin 1.3 mg/dl (0.2-1.3) 07/07/24 02:51
AST 20 U/L (14-36) 07/07/24 02:51
ALT 18 U/L (0-35) 07/07/24 02:51
Alkaline Phosphatase 98 U/L (38-126) 07/07/24 02:51
Impression/Plan
-
Assessment/Plan
Presentation with Fever, Chills, Body Aches and Muscle Cramping, Nausea and Vomiting
-No source of infection
-Monitor without antibiotics
-Hold further Kesimpta (won't likely be due for it for a while anyway)
-IV fluids
-Monitor on telemetry
Multiple Sclerosis
-Holding Kesimpta
-Patient denied taking any other medications at home for this
DDD
Nephrolithiasis/medullary sponge kidney
Ocular CVA
DVT Prophylaxis: Lovenox
Code Status: Full Code
[2024-07-07 12:15] LABS: Troponin I < 0.012 ng/ml
[2024-07-07] MEDS: FLEXERIL 2.5 MG PO (14:38)
--- NOTE | 2024-07-07 16:00 | PTCARENOTE ---
pt arrived to unit at 1300 via stretcher from ED. pt ambulated from hallway to bed w/ standby. VSS. assessment and admissions completed by this nurse. pt oriented to unit. NSS running at 100ml/hr. pt connected to tele #3 running NSR.
[2024-07-07] MEDS: LOVENOX 40 MG SC (18:03)
[2024-07-07 18:30] LABS: Troponin I < 0.012 ng/ml
[2024-07-07] MEDS: TYLENOL 650 MG PO (20:04)
[2024-07-08 00:37] LABS: Troponin I < 0.012 ng/ml
[2024-07-08 03:40] VITALS: BP 144/80
[2024-07-08] MEDS: NSS 1000 IV (05:33)
[2024-07-08 06:00] VITALS: BMI 35.1
[2024-07-08 06:44] LABS: % Basophils 0.3 % (0-2); % Eosinophils 2.7 % (0-6); % Immature Granulocytes 0.3 % (0-0.5); % Lymphocytes 34.9 % (20.5-51.1); % Monocytes 8.6 % (1.7-9.3); % Neutrophils 53.2 % (42.2-75.2); Absolute Eosinophils 0.1 10^3/uL (0-0.7); Absolute Lymphocytes 1.2 10^3/uL (1.2-3.4); Absolute Monocytes 0.3 10^3/uL (0.1-0.6); Absolute Neutrophils 1.8 10^3/uL (1.4-6.5); Hematocrit 33.6 % (37.0-47.0); Hemoglobin 11.3 g/dL (12.0-16.0); Mean Corp Hgb Conc. 33.6 g/dL (33.0-37.0); Mean Corpuscular Hgb 30.1 pg (27.0-31.0); Mean Corpuscular Volume 89.6 fL (81.0-99.0); Mean Platelet Volume 9.9 fL (7.4-10.4); Nucleated Red Blood Cells % 0 %; Platelet Count 165 10^3/uL (130-400); Red Blood Cell Count 3.75 10^6/uL (4.20-5.40); Red Cell Dist. Width 12.6 % (11.5-14.5); White Blood Cell Count 3.4 10^3/uL (4.8-10.8)
[2024-07-08 07:08] LABS: Blood Urea Nitrogen 10 mg/dl (7-17); Calcium 8.4 mg/dl (8.4-10.2); Carbon Dioxide 24 mmol/L (22-30); Chloride 109 mmol/L (98-107); Estimated Creatinine Clearance 81 ml/min; Glucose 92 mg/dl (70-99); Magnesium 1.9 mg/dl (1.6-2.3); Potassium 3.5 mmol/L (3.5-5.1); Sodium 139 mmol/L (135-145); Troponin I < 0.012 ng/ml; eGFR > 60.00
--- NOTE | 2024-07-08 07:15 | W.PN.HOSP.TC ---
Today's Communication/Plan
-
Discharge today
Assessment / Plan
Assessment / Plan
Physical Exam
General: No Apparent Distress
HEENT: Normocephalic and Moist mucous membranes
Respiratory: Clear to Auscultation Bilaterally
Cardiac: S1/S2 and RRR
GI: Soft, Non Tender and Normal Bowel Sounds
Musculoskeletal: No Cyanosis
Skin: Warm and Dry
Neuro: Awake, Alert, AAO x 3. Strength and sensation grossly intact bilaterally. Cranial Nerves 2 through 12 grossly intact bilaterally
Psych: Calm and Intact Judgment/Insight
Assessment/Plan
Presentation with Fever, Chills, Body Aches and Muscle Cramping, Nausea and Vomiting - suspected from Kesimpta - RESOLVED
-Patient is feeling good today and feeling back to normal to how she was prior to getting her Kesimpta on 07/06/24
-No source of infection and patient has now recovered without any symptoms, she is ambulating without difficulty
-Stop Kesimpta on discharge; patient can discuss with her neurologist Dr. Alex tomorrow and with her [place] [facility]ist about whether or not she should resume it
Multiple Sclerosis
-Stopping Kesimpta on discharge
-Patient denied taking any other medications at home for this
DDD
Nephrolithiasis/medullary sponge kidney
Ocular CVA
DVT Prophylaxis: Lovenox
Code Status: Full Code
More than 30 minutes spent in discharge including
Final examination of the patient
Summarizing hospital stay
Instructions for continuing care to all relevant caregivers
Preparation of discharge records, prescriptions, and referral forms
Total time spent (in minutes): 38
Anticipated Discharge: Today
Subjective/Interval History
-
Date of Service: July 08, 2024
Patient was seen and examined. She mentioned that her presenting symptoms have fully resolved and she is looking forward to being discharged today. She denied any symptoms today.
Objective Data
-
Labs:
Laboratory Results
07/08/24
06:07
WBC 3.4 L
Hgb 11.3 L
Hct 33.6 L
Plt Count 165
Sodium 139
Potassium 3.5
Chloride 109 H
Carbon Dioxide 24
BUN 10
Creatinine 0.9
Glucose 92
Calcium 8.4
Vital Signs:
Vital Signs
Temp Pulse Resp BP Pulse Ox
98.0 F 89 16 144/80 97
07/08/24 03:40 07/08/24 03:40 07/08/24 03:40 07/08/24 03:40 07/08/24 03:40
I&O
07/07/24 07/08/24 07/09/24
06:59 06:59 06:59
Intake Total 2159
Balance 2159
[2024-07-08 07:27] VITALS: BP 135/86
[2024-07-08 09:30] VITALS: BP 129/86; PULSE 89; O2SAT 97
[2024-07-08 10:03] VITALS: BP 129/86; PULSE 90; O2SAT 97
[2024-07-08 11:12] VITALS: BP 122/93
[2024-07-08 15:02] VITALS: BP 116/94
--- NOTE | 2024-07-08 16:21 | CM ---
PT Eval; no needs.
Met with patient who was preparing for d/c. Observation Letter done. Patient intends to return home today with transporting.
No CM d/c needs identified.
Plan home today.
== END 2024-07-08 15:55 | disposition home or self-care (01) ==
LOC: 3 WEST ACU 11:24
PROVIDERS: Emergency Medicine; ADMITTING PHYSICIAN Hospitalist; EMERGENCY PHYSICIAN Emergency Medicine; FAMILY PHYSICIAN Family Medicine
DX: R50.9 Fever, unspecified (principal); R11.2 Nausea with vomiting, unspecified; M79.10 Myalgia, unspecified site; I49.3 Ventricular premature depolarization; E86.0 Dehydration; R00.0 Tachycardia, unspecified; G35 Multiple sclerosis; Q61.5 Medullary cystic kidney; G25.81 Restless legs syndrome; Z84.1 Family history of disorders of kidney and ureter; Z87.440 Personal history of urinary (tract) infections; Z87.442 Personal history of urinary calculi; Z79.82 Long term (current) use of aspirin; Z83.3 Family history of diabetes mellitus; Z82.49 Family history of ischemic heart disease and other diseases of the circulatory system; Z88.1 Allergy status to other antibiotic agents; Z88.0 Allergy status to penicillin; Z86.73 Personal history of transient ischemic attack (TIA), and cerebral infarction without residual deficits; Z11.52 Encounter for screening for COVID-19
CPT/HCPCS: 71046; 80048; 80053; 81003; 81015; 81025; 82550; 83605; 83735; 84484; 85025; 87040; 87086; 87502; 87811; 93005; 96361; 96374; 96375; 96376; 97161; 97165; 99285

== ENCOUNTER 2024-11-19 06:02 | Emergency (ER) | payer BC, SELFPAY ==
[2024-11-19 06:05] VITALS: BP 168/115
--- NOTE | 2024-11-19 06:19 | ED.GENMED ---
History of Present Illness
General
Chief Complaint: Flank Pain
Source: patient
Exam Limitations: none
Time Seen by Provider: 11/19/24 06:11
Nursing documentation reviewed up to this point in time: agreed with
History of Present Illness
History of Present Illness:
54-year-old female past medical history of MS frequent kidney stones presenting to the emergency department today with concerns for left-sided flank pain over the past 2 days worsening this morning. Tried taking dose of Zofran Motrin and Dilaudid
at home without relief. Denies any fevers has been able to urinate.
Past History
Past History
ED Past Medical History: Other (Kidney stones, medullary sponge kidney, ddd, UTI, right branch retinal artery occlusion 11/2023, RLS) and Other (vitamin B12 defic., vitamin D defic., ferritin defic.)
ED Past Surgical History: Urological (urology stent)
Social History
Tobacco: Non-smoker
Alcohol: None
Drug: None
Personal:
Living: with family
Family History
Family History: Other (Father had kidney stones ); Negative Diabetes, Hypertension, Early CAD, Asthma or Cancer
Review of Systems
Review of Systems
Allergies reviewed?: Yes
All Other Systems: ROS reviewed and negative except as documented in HPI and ROS
Phy Exam
Physical Exam
Physical Exam:
GENERAL: Alert , in no apparent distress
EYE: pupils equal and reactive
NECK: Supple, no significant adenopathy.
ENT: o/p clr, mmm.
CARDIAC: Regular rate and rhythm .
LUNGS: Clear breath sounds bilaterally, no acute respiratory distress, no wheezes/rales/rhonchi
ABDOMEN: Soft, without focal tenderness, no r/g, no cvat
NEUROLOGICAL: Alert and oriented, no focal neuro deficits
SKIN: Warm and dry, skin intact.
MUSCULOSKELETAL: No edema, well perfused.
PSYCH: Normal and appropriate interaction.
Course
Orders/Labs/Results
Orders:
Orders
11/19/24 06:18
CT Abd/pel Without Iv Or Oral Urgent
Comment:
Reason For Exam: left flank pain
0.9% Sodium Chloride 1000 ml [Nss] 1,000 ml IV BOLUS
Ketorolac [Toradol] 15 mg IV NOW STA
Ondansetron Injectable [Zofran] 4 mg IV NOW STA
Test Result ONCE
11/19/24 06:28
Complete Blood Count/With Diff Urgent
Comprehensive Metabolic Panel Urgent
HCG, Serum Qualitative Screen Urgent
11/19/24 07:34
HYDROmorphone [Dilaudid] 0.5 mg IV NOW STA
11/19/24 07:40
Urinalysis Reflex To Culture Urgent
Date Specimen was Collected: 11/19/24
Time Specimen was Collected: 06:31
Urine Microscopic Reflex Cult Urgent
Urine Culture Urgent
PATI Source: U
Specimen Description:
Date Specimen was Collected: 11/19/24
Time Specimen was Collected: 06:31
11/19/24 08:52
HYDROmorphone [Dilaudid] 0.5 mg IV NOW STA
Ketorolac [Toradol] 15 mg IV NOW STA
Tamsulosin [Flomax] 0.4 mg PO NOW STA
11/19/24 09:31
Urinalysis Reflex To Culture Urgent
Date Specimen was Collected: 11/19/24
Time Specimen was Collected: 09:11
Comment: Repeat, need clean catch
Urine Microscopic Reflex Cult Urgent
Urine Culture Urgent
PATI Source: U
Specimen Description:
Date Specimen was Collected: 11/19/24
Time Specimen was Collected: 09:11
Abnormal Lab Results
11/19/24 11/19/24 11/19/24
06:28 07:40 09:31
Hct 36.8 L %
(37.0-47.0)
Lymphocytes % 18.1 L %
(20.5-51.1)
Carbon Dioxide 21 L mmol/L
(22-30)
Glucose 120 H mg/dl
(70-99)
Urine Ketones 1+ A
(Negative)
Ur Occult Blood Reflex 4+ A 4+ A
(Negative) (Negative)
Leukocyte Esterase Rfl 1+ A 1+ A
(Negative) (Negative)
Urine RBC 40-50 A /HPF >100 A /HPF
(0-2) (0-2)
Urine WBC (Reflex) 26-30 A /HPF 16-20 A /HPF
(0-5) (0-5)
Urine Bacteria (Reflex) Few A Few A
(Negative) (Negative)
Urine Albumin (Reflex) 1+ A 1+ A
(Neg - Trace) (Neg - Trace)
11/19/24 06:28
11/19/24 06:28
Vital Signs
Initial and Last Documented VS:
Initial Vital Signs
Temp Pulse Resp BP Pulse Ox
98.0 F 89 20 168/115 99
11/19/24 06:05 11/19/24 06:05 11/19/24 06:05 11/19/24 06:05 11/19/24 06:05
Last Documented Vital Signs
Temp Pulse Resp BP Pulse Ox
98.0 F 72 16 135/71 99
11/19/24 06:05 11/19/24 07:28 11/19/24 07:28 11/19/24 07:28 11/19/24 07:28
MDM/Problems Addressed
MDM/Problems Addressed:
54-year-old female presenting with concerns of left flank pain. History of kidney stones feel similar. Ct/labs/urine ordered. In severe pain, given IV pain med and nausea meds. Pain significant improved after receiving medications. Labs
unremarkable without evidence of any renal dysfunction. Urinalysis showing significant amount of red blood cells a small amount of white blood cells and few bacteria. CT scan confirming a 5 mm stone to the proximal left UPJ. Case discussed with
urology recommending close outpatient follow-up. Patient appears stable here in no distress at reassessment. Return precautions were given. She demonstrated understanding and agreement.
*Pulse Oximetry
SaO2: 99
Oxygen Mode of Delivery: Room air
Patient hypoxic: no (99)
*Critical Care Note
Total Time (30-74mins, 75-104mins- exclusive of procedures): Not Applicable
ED Attending Note
-
Portions of this chart may have been created with voice recognition software.� Occasional wrong word or��sound alike� substitutions may have occurred due to the inherent limitations of voice recognition software.
Discharge Plan
Departure
Patient Disposition: Home (Routine Discharge)
Date of Disposition: 11/19/24
Time of Disposition: 11:27
Patient with high blood pressure during this ER visit?: No
Condition: Good
Covid-19: Not Applicable
Discharge Problem:
Calculus, ureteral
Instructions: Renal Colic (DC), How to Strain Your Urine
Prescriptions:
New
ibuprofen 600 mg tablet
600 mg PO Q8H PRN (Reason: Pain) Qty: 14 0RF
oxycodone 5 mg tablet
5 mg PO Q8H PRN (Reason: Pain) Qty: 7 0RF
tamsulosin [Flomax] 0.4 mg capsule
0.4 mg PO HS Qty: 10 0RF
ondansetron 4 mg tablet,disintegrating
4 mg PO Q6H PRN (Reason: nausea and vomiting) Qty: 7 0RF
No Action
cyanocobalamin (vitamin B-12) 1,000 mcg Tablet
1,000 mcg PO DAILY
cholecalciferol (vitamin D3) [Vitamin D3] 50 mcg (2,000 unit) Tablet
50 mcg PO DAILY
alprazolam [Xanax] 0.25 mg Tablet
0.25 mg PO DAILYPRN PRN (Reason: anxiety)
acetaminophen [Tylenol] 325 mg Tablet
650 mg PO QIDPRN PRN (Reason: mild pain)
Eylea 2 mg/0.05 mL Solution
2 mg INTRAVITREAL MONTHLY
Referrals:
Gadiel Urena MD [Active, Urology] - Follow up in 5-7 days
Yahaira Gordon DO [Family Provider, Family Practice]
Activity Restrictions/Additional Instructions:
You came to the emergency department today and were found to have a kidney stone. Please use the prescribed medications to help with symptoms and follow-up closely with urology. Return for any worsening, new or concerning symptoms.
Interventions
Interventions:
*Risk Screen - Suicide Last Done: 11/19/24 06:05
*General Assessment Last Done: 11/19/24 06:29
*Neglect/Abuse Screening Last Done: 11/19/24 06:05
*ED- Fall Risk Assessment Last Done: 11/19/24 06:29
*ED COVID-19 Vaccine History Last Done: 11/19/24 06:29
WG-Fplosg-Gbybzyqnnl Assessment Last Done: 11/19/24 07:28
ED-Female Genitourinary Assessment Last Done: 11/19/24 07:28
Discharge Date and Time
Print Language: SERBIAN
[2024-11-19] MEDS: ZOFRAN 4 MG IV (06:25)
[2024-11-19] MEDS: TORADOL 15 MG IV ×2 (06:25→09:29)
[2024-11-19] MEDS: NSS 1000 IV (06:27)
[2024-11-19 06:29] VITALS: BMI 35.2
[2024-11-19 06:33] LABS: Hematocrit 36.8 % (37.0-47.0); Hemoglobin 12.8 g/dL (12.0-16.0); Mean Corp Hgb Conc. 34.8 g/dL (33.0-37.0); Mean Corpuscular Volume 87.0 fL (81.0-99.0); Nucleated Red Blood Cells % 0 %; Platelet Count 212 10^3/uL (130-400); Red Cell Dist. Width 12.6 % (11.5-14.5)
[2024-11-19 06:47] LABS: HCG, Serum Qualitative Screen Negative
[2024-11-19 07:03] LABS: ALT (SGPT) 13 U/L (0-35); AST (SGOT) 14 U/L (14-36); Albumin 4.3 g/dl (3.5-5.0); Alkaline Phosphatase 101 U/L (38-126); Blood Urea Nitrogen 14 mg/dl (7-17); Calcium 8.8 mg/dl (8.4-10.2); Carbon Dioxide 21 mmol/L (22-30); Chloride 107 mmol/L (98-107); Estimated Creatinine Clearance 80 ml/min; Glucose 120 mg/dl (70-99); Potassium 3.5 mmol/L (3.5-5.1); Sodium 138 mmol/L (135-145); Total Protein 6.8 g/dl (6.3-8.2); eGFR > 60.00
[2024-11-19 07:28] VITALS: BP 135/71
[2024-11-19] MEDS: DILAUDID 0.5 MG IV ×2 (07:41→09:30)
[2024-11-19 08:16] LABS: Urine Character Clear (Clear)
[2024-11-19 08:27] LABS: Urine Squamous Cell >30 /LPF (Few)
[2024-11-19 08:29] LABS: Urine Red Blood Cell 40-50 /HPF (0-2)
[2024-11-19 08:31] LABS: Urine White Cell 26-30 /HPF (0-5)
[2024-11-19] MEDS: FLOMAX 0.4 MG PO (09:29)
[2024-11-19 09:48] LABS: Urine Character Slightly Cloudy (Clear)
[2024-11-19 10:21] LABS: Urine Squamous Cell >30 /LPF (Few)
[2024-11-19 10:24] LABS: Urine White Cell 16-20 /HPF (0-5)
[2024-11-19 10:26] LABS: Urine Red Blood Cell >100 /HPF (0-2)
[2024-11-19 11:49] VITALS: BP 118/67
== END 2024-11-19 11:55 | disposition home or self-care (01) ==
LOC: EMR 06:02
PROVIDERS: Physician Assistant; EMERGENCY PHYSICIAN Student in an Organized Health Care Education/Training Program; FAMILY PHYSICIAN Family Medicine
DX: N20.2 Calculus of kidney with calculus of ureter (principal); R11.0 Nausea; Q61.5 Medullary cystic kidney; M51.35 Other intervertebral disc degeneration, thoracolumbar region; G35 Multiple sclerosis; H34.9 Unspecified retinal vascular occlusion; G25.81 Restless legs syndrome; E55.9 Vitamin D deficiency, unspecified; E53.8 Deficiency of other specified B group vitamins; Z87.442 Personal history of urinary calculi; Z87.440 Personal history of urinary (tract) infections; Z86.73 Personal history of transient ischemic attack (TIA), and cerebral infarction without residual deficits; Z88.1 Allergy status to other antibiotic agents; Z88.0 Allergy status to penicillin
CPT/HCPCS: 99284; 96374; 96375 ×2; 96361; 96376 ×2; 74176; 80053; 81003; 81015; 84703; 85025; 87086

== ENCOUNTER 2024-11-21 00:22 | Inpatient (IN) | payer BC, SELFPAY ==
[2024-11-20 21:33] VITALS: BP 147/105
[2024-11-20 21:51] LABS: Hematocrit 37.2 % (37.0-47.0); Hemoglobin 12.9 g/dL (12.0-16.0); Mean Corp Hgb Conc. 34.7 g/dL (33.0-37.0); Mean Corpuscular Volume 86.9 fL (81.0-99.0); Nucleated Red Blood Cells % 0 %; Platelet Count 197 10^3/uL (130-400); Red Cell Dist. Width 12.8 % (11.5-14.5)
[2024-11-20 22:03] LABS: ALT (SGPT) 11 U/L (0-35); AST (SGOT) 13 U/L (14-36); Albumin 4.2 g/dl (3.5-5.0); Alkaline Phosphatase 99 U/L (38-126); Blood Urea Nitrogen 9 mg/dl (7-17); Calcium 8.9 mg/dl (8.4-10.2); Carbon Dioxide 27 mmol/L (22-30); Chloride 104 mmol/L (98-107); Glucose 104 mg/dl (70-99); Potassium 3.9 mmol/L (3.5-5.1); Sodium 137 mmol/L (135-145); Total Protein 6.9 g/dl (6.3-8.2); eGFR 54.13
--- NOTE | 2024-11-20 22:58 | ED.GENMED ---
History of Present Illness
General
Chief Complaint: Abdominal Pain
Source: patient
Exam Limitations: none
Time Seen by Provider: 11/20/24 22:46
Nursing documentation reviewed up to this point in time: agreed with
History of Present Illness
History of Present Illness:
54-year-old female w h/o hypothyroid, kidney stones needing stent and lithotripsy who presents with a fever and worsening pain from kidney stone diagnosed here yesterday. Fever was recorded at home as 100.5. Pain medication not working. +Nausea,
no vomiting. Pertinently, the patient is undergoing treatment with Ocrevus, an immunosuppressive medication, which she began in August and is administered twice a year.
Past History
Past History
ED Past Medical History: Other (Kidney stones, medullary sponge kidney, ddd, UTI, right branch retinal artery occlusion 11/2023, RLS) and Other (vitamin B12 defic., vitamin D defic., ferritin defic.)
ED Past Surgical History: Urological (urology stent)
Social History
Tobacco: Non-smoker
Alcohol: None
Drug: None
Personal:
Living: with family
Family History
Family History: Other (Father had kidney stones ); Negative Diabetes, Hypertension, Early CAD, Asthma or Cancer
Review of Systems
Review of Systems
Allergies reviewed?: Yes
All Other Systems: ROS reviewed and negative except as documented in HPI and ROS
Constitutional: Reports fever; Denies chills
ABD/GI: Reports nausea
: Reports flank pain (Left)
Phy Exam
Physical Exam
Physical Exam:
GENERAL: Moderate due to left flank pain distress. A&Ox3.
CONSTITUTIONAL: Afebrile.
EYES: clear, conjunctivae normal
ENMT: moist mucus membranes, Pharynx nl
RESPIRATORY: Regular respirations, nonlabored, lungs clear.
CARDIOVASCULAR: Regular rate and rhythm, no murmurs, no rubs.
GI: Soft, nontender, normal BS
MUSCULOSKELETAL: Moves with ease. Well perfused.
SKIN: Warm, dry, pink
PSYCH: Anxious mood and affect. Well kept, interactive and appropriate
NEUROLOGIC: Awake, alert and oriented. No focal neurological deficits
Course
Orders/Labs/Results
Orders:
Orders
11/20/24 21:40
Complete Blood Count/With Diff Urgent
Comprehensive Metabolic Panel Urgent
11/20/24 22:46
Urinalysis Reflex To Culture Urgent
Date Specimen was Collected: 11/21/24
Time Specimen was Collected: 00:21
11/20/24 22:53
HYDROmorphone [Dilaudid] 1 mg IV NOW STA
Ondansetron Injectable [Zofran] 4 mg IV NOW STA
11/20/24 22:59
CR Abdomen - 1 View Urgent
Comment:
Reason For Exam: check position of kidney stone
11/20/24 23:30
UROLOGY CONSULT Urgent
Consulting Provider: Jason Braxton
Was physician already notified: Yes
Comment: L prox ureter stone, fever, intractable pain
11/20/24 23:47
CefTRIAXone [Rocephin] 1,000 mg IV NOW STA
11/20/24 23:53
Admit/Transfer Patient As Directed
Co-Sign Provider:
Level of Care: Inpatient admission
Assign to:: IMU- Intermediate Care
Physician / Group: Luc
Diagnosis: L Ureteral Stone, Sepsis
Reason for Hospitalization: L Ureteral Stone, Sepsis
Expected length of stay greater than two midnights?: Yes
ELOS- Estimated Length of Stay in days: 3
I certify the patient meets the requirements for IP care: Yes
EKG [Electrocardiogram (*1)] Urgent
Reason for Study: Tachycardia
PRN Pain Medication Management As Directed
May give lesser potent ordered pain med per pt: Yes
preference::
Protocol:: Medication orders for pain may be administered in a
manner that supports deferring to patient preference
when the pt is:
- Requesting an ordered lesser potent pain medication.
Least to most potent pain medications are defined
as: acetaminophen < NSAID < tramadol < opioids
(morphine, oxycodone, hydromorphone).
- Requesting a lesser dose of the same medication IF
ORDERED.
- Requesting a less intrusive route of administration
if both routes are prescribed by the provider (PO <
IV).
11/20/24 23:55
Code Status As Directed
Resuscitation Status: Full Code
Vancomycin [Vancocin] 1,500 mg 0.9% Sodium Chloride 500 ml [Nss] 500 ml IV NOW
11/20/24 23:56
Sterile Water [Sterile Water For Injection] 10 ml IV NOW STA
11/21/24 00:25
Urine Microscopic Reflex Cult Urgent
Urine Culture Urgent
PATI Source: U
Specimen Description:
Date Specimen was Collected: 11/21/24
Time Specimen was Collected: 00:21
Abnormal Lab Results
11/20/24
21:40
Absolute Neuts (auto) 6.7 H 10^3/uL
(1.4-6.5)
Absolute Lymphs (auto) 0.4 L 10^3/uL
(1.2-3.4)
Neutrophils % 88.4 H %
(42.2-75.2)
Lymphocytes % 5.2 L %
(20.5-51.1)
Creatinine 1.2 H mg/dL
(0.6-1.0)
Glucose 104 H mg/dl
(70-99)
AST 13 L U/L
(14-36)
11/20/24 21:40
11/20/24 21:40
Vital Signs
Initial and Last Documented VS:
Initial Vital Signs
Temp Pulse Resp BP Pulse Ox
100.4 F H 134 18 147/105 99
11/20/24 21:33 11/20/24 21:33 11/20/24 21:33 11/20/24 21:33 11/20/24 21:33
Last Documented Vital Signs
Temp Pulse Resp BP Pulse Ox
100.7 F H 120 18 144/88 95
11/20/24 23:14 11/21/24 00:45 11/21/24 00:45 11/21/24 00:00 11/21/24 00:34
MDM/Problems Addressed
Differential Diagnosis Includes:
ureteral stone, UTI, pyelonephritis
MDM/Problems Addressed:
54-year-old female w h/o hypothyroid, kidney stones needing stent and lithotripsy who presents with a fever and worsening pain from kidney stone diagnosed here yesterday. Fever was recorded at home as 100.5. Pain medication not working. +Nausea, no
vomiting. Pertinently, the patient is undergoing treatment with Ocrevus, an immunosuppressive medication, which she began in August and is administered twice a year.
Plan:
1. Pain Management: Plan to administer pain medication to alleviate the patients discomfort.
2. Nausea Management: The patient will be given medication for nausea.
3. Diagnostic Evaluation: Request for a urine sample to conduct further analysis.
4. Monitor Immune System: Given her treatment with Ocrevus, considerations for her immune system status are necessary.
consulted Dr. Braxton, Urology who requests admit to Hospitalist, pain control, NPO for poss stent tomorrow.
11:30 p.m.
Hospitalist notified of admission.
*Pulse Oximetry
SaO2: 99
Patient hypoxic: not evaluated
*Critical Care Note
Total Time (30-74mins, 75-104mins- exclusive of procedures): Not Applicable
ED Attending Note
-
Portions of this chart may have been created with voice recognition software.� Occasional wrong word or��sound alike� substitutions may have occurred due to the inherent limitations of voice recognition software.
Discharge Plan
Departure
Patient Disposition: Admit
Date of Disposition: 11/20/24
Time of Disposition: 23:24
Admit to: Med/Surg
Presentation/result/management discussed w/ accepting MD/DO: Hospitalist
Condition: Fair
Discharge Problem:
Kidney stone on left side
Interventions
Interventions:
*Risk Screen - Suicide Last Done: 11/20/24 21:35
*General Assessment Last Done: 11/20/24 21:35
*Neglect/Abuse Screening Last Done: 11/20/24 21:35
*ED- Fall Risk Assessment Last Done: 11/20/24 23:09
*ED COVID-19 Vaccine History Last Done: 11/20/24 23:09
*Nursing Disposition Last Done: 11/21/24 01:00
PJ-Jzawmf-Exddccslir Assessment Last Done: 11/20/24 23:09
Discharge Date and Time
Discharge Date/Time: 11/21/24 01:03
[2024-11-20 23:08] VITALS: BMI 35.9
[2024-11-20 23:13] VITALS: BP 117/73
[2024-11-20] MEDS: DILAUDID 1 MG IV (23:15)
[2024-11-20] MEDS: ZOFRAN 4 MG IV (23:15)
[2024-11-20 23:58] VITALS: BP 145/93
[2024-11-21] VITALS (15 sets, daily range): BP systolic 113–144; BP diastolic 61–89; BMI 35.8
--- NOTE | 2024-11-21 00:02 | HPS.HSE ---
Family Physician
-
Family Physician: Yahaira Gordon
Chief Complaint
-
Flank Pain / Fever
History of Present Illness
Patient is a 54y F with PMH significant for multiple sclerosis and kidney stones who presents to ED complaining of L flank pain, fevers, nausea and weakness. Patient was seen in the ED yesterday with L flank pain and found to have 5-6mm L UPJ
stone. She was prescribed Flomax and pain medication and discharged to home. She has unfortunately continued to have pain. She developed fever at home today with diaphoresis, nausea and malaise. Patient returned to the ED for further evaluation
and treatment.
Patient states that she has had intervention on > 10 kidney stones in the past.
She was recently started on Ocrevus for MS (first and only dose thus far in August 2024).
Medical History
Past Medical History
Past Medical History: Reports Other
Additional Past Medical History:
Multiple Sclerosis
Nephrolithiasis
Past Surgical History: Reports Other
Additional Past Surgical History:
Ureteral Stents
Lithotripsies
Social History
Tobacco: Non-smoker
Alcohol: None
Drug: None
Family History
Family History: Not pertinent
Allergies / Home Medications
Allergies reflects when Allergies were last updated in [employer].
Home Medications with original date entered in [employer]
Allergy/Medication List:
Allergies
Allergy/AdvReac Type Severity Reaction Status Date / Time
ciprofloxacin (From Cipro) Allergy Itching Verified 11/20/24 21:34
ciprofloxacin HCl (From Allergy Itching Verified 11/20/24 21:34
Cipro)
Penicillins Allergy Rash Verified 11/20/24 21:34
Home Medications
alprazolam 0.25 mg tablet (Xanax) 0.25 mg PO DAILYPRN PRN anxiety 04/05/24
cyanocobalamin (vitamin B-12) 1,000 mcg tablet 1,000 mcg PO DAILY Supplement 04/05/24
aflibercept 2 mg/0.05 mL intravitreal solution for injection (Eylea) 2 mg intravitreal MONTHLY 07/07/24
Ocrevus 1 dose IV [id number] 11/20/24
cholecalciferol (vitamin D3) 100 mcg (4,000 unit) tablet 100 mcg PO DAILY 11/20/24
ibuprofen 200 mg tablet (Advil) 400 mg PO Q4HPRN PRN mild pain 11/20/24
ondansetron 4 mg disintegrating tablet 4 mg PO Q6HPRN PRN nausea and vomiting 11/20/24
oxycodone 5 mg tablet 5 mg PO Q8HPRN PRN severe pain 11/20/24
tamsulosin 0.4 mg capsule (Flomax) 0.4 mg PO DAILY 11/20/24
Review of Systems
-
History Source: Patient
A 12 point ROS was completed and negative except as noted: Yes
Constitutional: Reports Fever, Fatigue and Chills
EENT: Denies Sore Throat
Respiratory: Denies Cough or Trouble Breathing
Cardiac: Denies Chest Pain or Palpitations
Abdomen/GI: Reports Nausea; Denies Abdominal Pain, Vomiting or Diarrhea
: Reports Flank Pain and Dark Urine; Denies Dysuria
Neurological: Reports Headache and Weakness; Denies Dizzy
Psych: Reports Anxiety; Denies Depression
Physical Exam
Vital Signs
Vital Signs
Temp Pulse Resp BP Pulse Ox
100.7 F H 134 18 117/73 100
11/20/24 23:14 11/20/24 21:33 11/20/24 21:33 11/20/24 23:13 11/20/24 23:13
Physical Exam
General: Other (54y F in mild distress due to pain / nausea.)
HEENT: Other (Dry MM. Neck supple.)
Respiratory: Clear; No Wheezes, Rales or Rhonchi
Cardiac: S1/S2 and Tachycardia; No Murmur
GI: Soft, Non Tender, Non Distended and Normal Bowel Sounds
Genito-urinary: Other (Pos L CVAT)
Musculoskeletal: No Clubbing, No Cyanosis and No Edema
Neuro: AO x 3
Laboratory Results
-
11/20/24 21:40
11/20/24 21:40
Laboratory Results
Total Bilirubin 1.1 mg/dl (0.2-1.3) 11/20/24 21:40
AST 13 U/L (14-36) L 11/20/24 21:40
ALT 11 U/L (0-35) 11/20/24 21:40
Alkaline Phosphatase 99 U/L (38-126) 11/20/24 21:40
Impression/Plan
-
A/P: Patient is a 54y F with PMH significant for MS and recurrent kidney stones presents to ED with persistent L flank pain and new fevers / chills and nausea.
Left Ureteral Stone
UTI
Sepsis secondary to the above
NATASHA secondary to the above
- Admit for further evaluation and treatment.
- Patient presents with fever, tachycardia and UA / imaging evidence of proximal urinary tract infection.
- SCr = 1.2 compared to baseline (yesterday) of 0.9.
- IV abx now and daily pending culture data.
- IVF support +/- pressors if needed to maintain perfusion.
- Pain control / antiemetics / supportive care.
- Urology consulted and plan is for OR this evening for ureteroscopy / stent.
- IMU post-op.
- Follow for clinical improvement.
- Follow fever curve and monitor for any new / worsening symptoms.
Multiple Sclerosis
- No current / acute symptoms.
- Received first dose of Ocrevus in August - no other medications since that time (q 6 months).
- Effectively immunosuppressed given Ocrevus use.
- Follow for any changes.
DVT Prophylaxis: SCDs
Code Status: Full
[2024-11-21] MEDS: STERILE WATER FOR INJECTION 10 ML IV ×2 (00:14→23:32)
[2024-11-21] MEDS: ROCEPHIN 1000 MG IV ×2 (00:14→23:32)
[2024-11-21] MEDS: VANCOCIN 530 MG IV (00:14)
[2024-11-21 00:35] LABS: Urine Character Clear (Clear)
[2024-11-21 00:46] LABS: Urine Squamous Cell >30 /LPF (Few)
[2024-11-21 00:47] LABS: Urine Red Blood Cell 16-20 /HPF (0-2); Urine White Cell 40-50 /HPF (0-5)
--- NOTE | 2024-11-21 00:48 | W.SUR.PREOP ---
Pre-Operative Surgical Note
-
I have examined this patient prior to the performance of the scheduled procedure.
The patient's condition is unchanged from the time of the current History and
Physical and the patient is able to undergo the scheduled procedure.
Evolving urosepsis suspected - tachycardia to 140s, febrile to 100.4 in ED, UA grossly suspicious for cUTI.
11/19 CTAP => 6 mm obstructing proximal left ureteral stone w/ mild hydronephrosis and perinephric stranding.
11/21 KUB (requested by Urology) => 6 mm proximal left ureteral stone.
Reviewed risks, benefits, alternatives, and potential complications (including but not limited to urosepsis, bleeding, ureteral/bladder injury, risk of ureteral stricture formation, need for emergent additional procedures/surgeries) of
cysto/RPG/stent placement.
- Continue broad spectrum IV antibiotics (Ceftriaxone/Vanco)
- To OR emergently for cysto + LEFT stent placement
- Surgical consent to be signed in preop holding
D/w ED.
D/w Hospitalist.
--- NOTE | 2024-11-21 01:35 | W.IMMPOSTOP ---
Surgical Immed Post Op Note
-
Primary Surgeon: Irais
Pre-op Diagnosis:
1. Obstructing proximal left ureteral stone
2. Urosepsis (evolving)
3. Tachycardia
4. Fevers
5. Immunocompromise secondary to MS biologics
Post-op Diagnosis: Same
Procedure Performed: cysto + LEFT stent placement
Anesthesia Type: MAC
Specimen / Cultures: None/None
Estimated Blood Loss: Negligible
Drains: 6Fr x 24 cm JJ left ureteral stent
Complications: None
Operative Findings: see op note
[2024-11-21] MEDS: DETROL LA 4 MG PO (01:48)
[2024-11-21] MEDS: NSS 1000 IV ×3 (02:27→15:39)
--- NOTE | 2024-11-21 03:15 | PTCARENOTE ---
on assessment pt AAOx3, drowsy, denies pain and SOB at this time, HANSEN, 3L NC, lungs clear, NPO, strain urine per orders, bed alarm on and call gregorio in reach. NSS at 150ml/hr
[2024-11-21 03:59] LABS: Hematocrit 35.7 % (37.0-47.0); Hemoglobin 12.1 g/dL (12.0-16.0); Mean Corp Hgb Conc. 33.9 g/dL (33.0-37.0); Mean Corpuscular Volume 89.7 fL (81.0-99.0); Platelet Count 179 10^3/uL (130-400); Red Cell Dist. Width 12.7 % (11.5-14.5)
[2024-11-21] MEDS: DILAUDID 0.25 MG IV ×3 (04:03→13:56)
[2024-11-21 04:26] LABS: Blood Urea Nitrogen 9 mg/dl (7-17); Calcium 8.1 mg/dl (8.4-10.2); Carbon Dioxide 24 mmol/L (22-30); Chloride 106 mmol/L (98-107); Estimated Creatinine Clearance 66 ml/min; Glucose 116 mg/dl (70-99); Potassium 3.9 mmol/L (3.5-5.1); Sodium 136 mmol/L (135-145); eGFR > 60.00
[2024-11-21] MEDS: DILAUDID 0.5 MG IV ×2 (06:55→11:31)
[2024-11-21] MEDS: DITROPAN 5 MG PO ×2 (08:32→20:12)
[2024-11-21] MEDS: FLOMAX 0.4 MG PO (08:32)
[2024-11-21] MEDS: VALIUM 2 MG PO (09:33)
--- NOTE | 2024-11-21 11:06 | CM ---
OR this am for cysto, Left stent placement. Initial assessment completed with patient who lives with her and 2 adult children in a 2 story home plus basement with B/B on 1st, 1 step to enter. MANAGER ACTION patient was independent in ambulation and
ADL's, does drive. DME is [facility] but does not use. No in-home services. No service. No HC-POA. PCP is Dr. Yahaira Gordon and Pharmacy is [facility] on [address] and [address] on [address]. Discharge POC: Anticipate Home with no needs.
--- NOTE | 2024-11-21 11:32 | W.PN.HOSP.TC ---
Today's Communication/Plan
-
Transfer out of IMU
IV fluid
Continue antibiotic
Await culture data
urology recs
Assessment / Plan
Assessment / Plan
General: NAD,
HEENT: Other (Dry MM. Neck supple.)
Respiratory: Clear; No Wheezes, Rales or Rhonchi
Cardiac: S1/S2 regular rhythm No Murmur
GI: Soft, Non Tender, Non Distended and Normal Bowel Sounds
Musculoskeletal: No Clubbing, No Cyanosis and No Edema
Neuro: AO x 3
A/P: Patient is a 54y F with PMH significant for MS and recurrent kidney stones presents to ED with persistent L flank pain and new fevers / chills and nausea.
Left Ureteral Stone
Suspected UTI
Sepsis secondary to the above
History of multiple renal stones in the past
-Status post urgent cystoscopy with left ureteral stent placement
-Await for urine culture results. Continue antibiotics for now. May require prophylactic antibiotic as patient post urological procedure on discharge
-Continue with Valium and oxybutynin for spasms. Continue Flomax.
-Pain control.
- urology following
Elevated Cr likely 2/2 ureteral stone obstruction
-Cr improving. IVF for now
Multiple Sclerosis
- No current / acute symptoms.
- Received first dose of Ocrevus in August - no other medications since that time (q 6 months).
- Effectively immunosuppressed given Ocrevus use.
- Follow for any changes.
Anxiety
-Switch Xanax to Valium as it should also assist with ureteral spasms
DVT Prophylaxis: SCDs
Code Status: Full
Anticipated Discharge: 24 - 48 hours
Subjective/Interval History
-
Date of Service: November 21, 2024
states of spasms from stent urteral-states experience it before.
Objective Data
-
Labs:
Laboratory Results
11/21/24
03:49
WBC 8.2
Hgb 12.1
Hct 35.7 L
Plt Count 179
Sodium 136
Potassium 3.9
Chloride 106
Carbon Dioxide 24
BUN 9
Creatinine 1.1 H
Glucose 116 H
Calcium 8.1 L
Vital Signs:
Vital Signs
Temp Pulse Resp BP Pulse Ox
98.1 F 101 17 121/83 95
11/21/24 07:51 11/21/24 06:00 11/21/24 06:00 11/21/24 06:00 11/21/24 06:00
I&O
11/20/24 11/21/24 11/22/24
06:59 06:59 06:59
Intake Total 350 / 350 450 / 450
Output Total 500 / 500
Balance 350 / 350 -50 / -50
Physical Exam
-
General: Well Developed and No Apparent Distress
HEENT: Normocephalic, Atraumatic and Moist Mucous Membranes
Respiratory: Clear to Auscultation
Cardiac: Regular Rhythm and S1/S2; Negative Murmur, Rub or Gallop
GI: Soft, Nontender, Nondistended and Normal Bowel Sounds; Negative Organomegaly
Rectal: Deferred by Provider
Musculoskeletal: No Clubbing, No Cyanosis and No Edema
Skin: Negative Rash
Neuro: Awake, AO x 3, No Motor Deficits and Nonfocal/Grossly Intact
Psych: Calm
Data Reviewed
-
Total Time Spent with Patient (in minutes): 55
--- NOTE | 2024-11-21 13:32 | CM ---
Patient transferring to Room 339-1.
[2024-11-21] MEDS: ZOFRAN 4 MG IV (13:57)
[2024-11-21] MEDS: ROXICODONE 5 MG PO ×3 (14:25→23:31)
[2024-11-21] MEDS: DILAUDID 1 MG IV ×2 (16:08→20:12)
[2024-11-22] MEDS: NSS 1000 IV ×2 (02:04→12:49)
[2024-11-22] MEDS: DILAUDID 1 MG IV ×3 (02:13→11:30)
[2024-11-22 03:39] VITALS: BP 105/63
[2024-11-22 06:00] VITALS: BMI 37.0
[2024-11-22 07:11] LABS: Hematocrit 32.3 % (37.0-47.0); Hemoglobin 10.5 g/dL (12.0-16.0); Mean Corp Hgb Conc. 32.5 g/dL (33.0-37.0); Mean Corpuscular Volume 89.2 fL (81.0-99.0); Nucleated Red Blood Cells % 0 %; Platelet Count 195 10^3/uL (130-400); Red Cell Dist. Width 13.0 % (11.5-14.5)
[2024-11-22 07:32] LABS: Blood Urea Nitrogen 17 mg/dl (7-17); Calcium 8.0 mg/dl (8.4-10.2); Carbon Dioxide 25 mmol/L (22-30); Chloride 110 mmol/L (98-107); Estimated Creatinine Clearance 67 ml/min; Glucose 100 mg/dl (70-99); Potassium 4.1 mmol/L (3.5-5.1); Sodium 137 mmol/L (135-145); eGFR > 60.00
[2024-11-22] MEDS: FLOMAX 0.4 MG PO (09:07)
[2024-11-22] MEDS: DITROPAN 5 MG PO (09:07)
--- NOTE | 2024-11-22 11:36 | W.PN.HOSP.TC ---
Today's Communication/Plan
-
Await urine culture results
Urology recs
If urine culture finalized- Plan for tentative DC later today
Assessment / Plan
Assessment / Plan
General: NAD,
HEENT: Other (Dry MM. Neck supple.)
Respiratory: Clear; No Wheezes, Rales or Rhonchi
Cardiac: S1/S2 regular rhythm No Murmur
GI: Soft, Non Tender, Non Distended and Normal Bowel Sounds
Musculoskeletal: No Clubbing, No Cyanosis and No Edema
Neuro: AO x 3
A/P: Patient is a 54y F with PMH significant for MS and recurrent kidney stones presents to ED with persistent L flank pain and new fevers / chills and nausea.
Left Ureteral Stone
Suspected UTI
Sepsis secondary to the above
History of multiple renal stones in the past
-Status post urgent cystoscopy with left ureteral stent placement
-Await for urine culture results. Continue antibiotics for now. May require prophylactic antibiotic as patient post urological procedure on discharge
-Continue with Valium and oxybutynin for spasms. Continue Flomax.
-Pain control.
-Urology follow-up requested
Elevated Cr likely 2/2 ureteral stone obstruction
-Cr improving. IVF for now
Multiple Sclerosis
- No current / acute symptoms.
- Received first dose of Ocrevus in August - no other medications since that time (q 6 months).
- Effectively immunosuppressed given Ocrevus use.
- Follow for any changes.
Anxiety
-Switch Xanax to Valium as it should also assist with ureteral spasms
DVT Prophylaxis: SCDs
Code Status: Full
Anticipated Discharge: Today
Subjective/Interval History
-
Date of Service: November 22, 2024
Remains with intermittent spasms from stent placement
Tolerating diet
Afebrile
Objective Data
-
Labs:
Laboratory Results
11/22/24
06:30
WBC 8.7
Hgb 10.5 L
Hct 32.3 L
Plt Count 195
Sodium 137
Potassium 4.1
Chloride 110 H
Carbon Dioxide 25
BUN 17
Creatinine 1.1 H
Glucose 100 H
Calcium 8.0 L
Vital Signs:
Vital Signs
Temp Pulse Resp BP Pulse Ox
98.4 F 83 15 105/63 97
11/22/24 03:39 11/22/24 03:39 11/22/24 03:39 11/22/24 03:39 11/22/24 03:39
I&O
11/21/24 11/22/24 11/23/24
06:59 06:59 06:59
Intake Total 350 / 350 1050 / 1050
Output Total 750 / 750
Balance 350 / 350 300 / 300
[2024-11-22 12:37] VITALS: BP 127/79
--- NOTE | 2024-11-22 13:23 | W.DCSUMMARY ---
Discharge Summary
Discharge Data
Date of Admission: 11/21/24
Date of Discharge: 11/22/24
-
Pending Results: No
Hospital Course
54-year-old female past medical history of morbid obesity, MS who is presenting with left-sided flank pain. Patient underwent imaging study with left-sided renal stone with hydronephrosis. Patient went to the operating room with urgent cystoscopy
with left ureteral stent placement. Postop patient did well. Patient received IV antibiotic through hospitalization. Urine culture negative. WBC normal. Patient was started on oxybutynin and Valium PIN for ureteral stent placement. Discussed
case with Dr. Braxton and currently stent will remain in place and patient is to follow-up with him in the office for further renal stone management and ureteral stent management. Also per urology antibiotics can further be discontinued. Patient
will be scheduled for ureteral stent procedure most likely early next week.
Discharge Plan
-
Patient Disposition: Home (Routine Discharge)
Discharge Diagnosis/Procedures: Left renal stone with obstruction s/p cystoscopy and ureteral stent placement.
Condition: Fair
Diet: Regular
Activity: As tolerated
Driving Restrictions: Avoid driving while on Valium
Referrals:
Jason Braxton MD [Active, Urology] - in one to two weeks
Referral Note: call to make appt.
Yahaira Gordon DO [Family Provider, Family Practice] - in less than 1 week
Prescriptions:
New
oxybutynin chloride 5 mg Tablet
5 mg PO BID 7 Days Qty: 14 0RF
diazepam 5 mg Tablet
5 mg PO BIDPRN PRN (Reason: anxiety/spasms) Qty: 14 0RF
Continued
cyanocobalamin (vitamin B-12) 1,000 mcg Tablet
1,000 mcg PO DAILY
Eylea 2 mg/0.05 mL Solution
2 mg INTRAVITREAL MONTHLY
ibuprofen [Advil] 200 mg Tablet
400 mg PO Q4HPRN PRN (Reason: mild pain)
cholecalciferol (vitamin D3) 100 mcg (4,000 unit) Tablet
100 mcg PO DAILY
Ocrevus
1 dose IV [id number]
tamsulosin [Flomax] 0.4 mg capsule
0.4 mg PO DAILY
ondansetron 4 mg tablet,disintegrating
4 mg PO Q6HPRN PRN (Reason: nausea and vomiting)
oxycodone 5 mg tablet
5 mg PO Q8HPRN PRN (Reason: severe pain)
Held
alprazolam [Xanax] 0.25 mg Tablet
0.25 mg PO DAILYPRN PRN (Reason: anxiety)
Hold Instructions: Resume on 12/06/24.
Discharge Orders:
Discharge Patient (As Directed); Ordered 11/22/24
Ordered By: Dc Ortega
Discharge Date and Time
Print Language: AMHARIC
--- NOTE | 2024-11-22 14:42 | CM ---
MD entered order for discharge.
Spoke with patient she said she is having pain and needing Dilaudid IV and po narcotics.
Pt declined VN at discharge.
Her will drive her home.
PLAN Home no needs
[2024-11-22] MEDS: VALIUM 5 MG PO (14:51)
[2024-11-22 15:22] VITALS: BP 117/74
== END 2024-11-22 17:29 | disposition home or self-care (01) | DRG 854 ==
LOC: 3 WEST ACU 00:22
PROVIDERS: Emergency Medicine; Registered Nurse; Surgery; ADMITTING PHYSICIAN Hospitalist; ATTENDING PHYSICIAN Hospitalist; EMERGENCY PHYSICIAN Emergency Medicine; FAMILY PHYSICIAN Family Medicine
PROC: 0T778DZ Dilation of Left Ureter with Intraluminal Device, Via Natural or Artificial Opening Endoscopic (ICD-10-PCS; 2024-11-21)
DX: A41.9 Sepsis, unspecified organism (principal); D84.9 Immunodeficiency, unspecified; N13.6 Pyonephrosis; G35 Multiple sclerosis; F41.9 Anxiety disorder, unspecified; E03.9 Hypothyroidism, unspecified; G25.81 Restless legs syndrome; Z87.442 Personal history of urinary calculi; Z88.1 Allergy status to other antibiotic agents
CPT/HCPCS: 74018; 76000; 80048; 80053; 81003; 81015; 85025; 85027; 87086; 93005; 96365; 96375; 99284; C2617

== ENCOUNTER 2024-11-26 06:22 | Day surgery (SDC) | payer BC, SELFPAY ==
--- NOTE | 2024-11-23 14:33 | PTCARENOTE ---
Abnormal EKG on 11/21/24. Dr. Ramos aware. No intervention needed.
[2024-11-26] VITALS (11 sets, daily range): BP systolic 91–170; BP diastolic 57–101; BMI 35.5
[2024-11-26] MEDS: NORMOSOL-R/PLASMALYTE-A 1000 IV (11:13)
--- NOTE | 2024-11-26 13:08 | W.IMMPOSTOP ---
Surgical Immed Post Op Note
-
Primary Surgeon: Irais
Pre-op Diagnosis: Urosepsis s/p emergent left ureteral stent placement (11/21/24), h/o CaPhos nephrolithiasis
Post-op Diagnosis: Same
Procedure Performed: left ureteroscopy/stone manipulation/basket extraction/stent exchange
Anesthesia Type: LMA
Specimen / Cultures: Stone for analysis/None
Estimated Blood Loss: Negligible
Drains: 4.7Fr x 22 cm JJ left ureteral stent (on string tether)
Complications: None
Operative Findings:
6 mm stone noted in proximal left ureter - manipulated retrograde and removed intact via basket.
No left renal pelvis stones or stones indicative of impending passage noted on pyeloscopy.
Due to patient's extremely poor stent tolerance, elective treatment of left calyceal stones will be reserved for future date.
Final KUB + cysto confirming appropriate stent position.
[2024-11-26] MEDS: DILAUDID 0.25 MG IV ×2 (13:13→13:24)
[2024-11-26] MEDS: DETROL LA 4 MG PO (13:41)
[2024-11-26] MEDS: ZOFRAN 4 MG IV (14:29)
[2024-12-01 11:26] LABS: Stone Analysis Mass 63 mg
== END 2024-11-26 14:55 | disposition home or self-care (01) ==
LOC: SDS 06:22
PROVIDERS: ATTENDING PHYSICIAN Surgery
DX: N20.0 Calculus of kidney (principal); Z87.442 Personal history of urinary calculi
CPT/HCPCS: 52352; 52332; 74019; 76000; 82365; C1894; C2617